=== PATIENT | female | born 2000 | race Caucasian/White ===

== ENCOUNTER 2023-07-10 11:02 | Outpatient (OUT) | payer OTHER, SELFPAY ==
[2023-07-10 11:28] LABS: Basophils Percent Auto 0.8 % (0.2-2.0); Eosinophils Absolute Auto 0.2 10^3/uL (0.0-0.7); Eosinophils Percent Auto 4.2 % (0.9-7.0); Hematocrit 37.9 % (36.0-48.0); Hemoglobin 12.7 g/dL (12.0-16.0); Immature Granulocytes Abs Auto 0.01 10^3/uL (0.00-0.03); Immature Granulocytes Pct Auto 0.3 % (0.0-0.5); Lymphocytes Absolute Auto 1.3 10^3/uL (1.2-3.8); Lymphocytes Percent Auto 35.1 % (20.5-60.0); Mean Corpuscular HGB Conc 33.5 g/dL (29.9-35.2); Mean Corpuscular Hemoglobin 30.3 pg (26.7-34.0); Mean Corpuscular Volume 90.5 fL (81.0-99.0); Mean Platelet Volume 9.5 fL (9.5-13.5); Monocytes Absolute Auto 0.4 10^3/uL (0.3-0.8); Monocytes Percent Auto 10.8 % (1.7-12.0); Neutrophils Absolute Auto 1.9 10^3/uL (1.4-6.5); Neutrophils Percent Auto 48.8 % (43.0-75.0); Platelet Count 227 10^3/uL (150-450); Red Blood Count 4.19 10^6/uL (4.20-5.40); Red Cell Distribution Width 11.9 % (11.0-15.0); White Blood Count 3.8 10^3/uL (4.0-11.0)
[2023-07-10 12:09] LABS: Alanine Aminotransferase 41 U/L (14-59); Albumin Globulin Ratio 1.4; Albumin Level 4.3 g/dL (3.4-5.0); Alkaline Phosphatase 75 U/L (46-116); Amylase 51 U/L (25-115); Aspartate Amino Transferase 24 U/L (15-37); BUN Creatinine Ratio 13.6; Bilirubin Total 0.3 mg/dL (0.2-1.0); Calcium 9.2 mg/dL (8.5-10.1); Carbon Dioxide 28.9 mmol/L (21.0-32.0); Chloride 103 mmol/L (98-107); Estimated GFR (African America >60 (>=60); Estimated GFR (Non-African Ame >60 (>=60); Free T3 2.94 pg/mL (2.18-3.98); Glucose 84 mg/dL (74-106); Potassium 3.9 mmol/L (3.5-5.1); Sodium 136 mmol/L (136-145); Thyroid Stimulating Hormone 2.454 uIU/mL (0.358-3.740); Total Protein 7.3 g/dL (6.4-8.2)
[2023-07-10 14:08] LABS: Mono Screen NEGATIVE (NEGATIVE)
--- OUTSIDE RECORDS SUMMARY | 2023-08-20 13:59 | XMS_ITS | CCD ---
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 Press Operator Name Role Phone GREG GERARDO Admitting Unavailable GREG GERARDO Attending Unavailable GREG GERARDO Consulting Unavailable REQUEST, NONE LISTED Admitting Unavaila ble REQUEST, NONE LISTED Attending Unavaila ble REQUEST, DR SERRANO LISTED Consulting Unavaila ble HOY, DR MAYES Primary Care Unavailable HOMERO SOLOMON Admitting Unavailable NEHA, HOMERO Attending Unavailable NEHA, HOMERO Consulting Unavailable BENJAMÍN, DR MAYES Admitting Unavailable HOY, DR MAYES Attending Unavailable HOY, DR MAYES Consulting Unavailable Problems Active Problems Problem Classification Problem Date Documented Date Episodic/Chronic Fluid and electrolyte disorders (1 source) Dehydration; Translations: [DEHYDRATION] Onset: 08-21-2021 Episodic Nausea and vomiting (1 source) Nausea with vomiting, unspecified; Translations: [NAUSEA WITH VOMITING UNSPECIFIED] Onset: 08-21-2021 Episodic Other screening for suspected conditions (not mental disorders or infectious disease) (1 source) Abnormal electrocardiogram [ECG] [EKG]; Translations: [ABNORMAL ELECTROCARDIOGRAM] Onset: 08-21-2021 Episodic Residual codes; unclassified (1 source) Other specified postprocedural states; Translations: [OTH SPECIFIED POSTPROCEDURAL STATES] Onset: 08-21-2021 Episodic Syncope (4 sources) Syncope and collapse; Translations: [SYNCOPE AND COLLAPSE] Onset: 08-16-2021 Episodic Unclassified (3 sources) CONTACT W/AND (SUSP) EXPOS COVID-19; Translations: [CONTACT W/AND (SUSP) EXPOS COVID-19] Onset: 10-12-2020 Past or Other Problems Problem Classification Problem Date Documented Da te Episodic/Chronic Unclassified (1 source) CONTACT W/AND (SUSP) EXPOS COVID-19; Translations: [CONTACT W/AND (SUSP) EXPOS COVID-19] Onset: 10-08-2020 Results Test Name Value Interpretation Reference Range Facil ity CBC W MANUAL DIFFon 08-16-20 ATYPICAL LYMPH # Normal The [facility] Comment on above: Performed By: #### C MAHESH #### Laboratory [address] [place] [address] Dr. Sirena Gavin ATYPICAL LYMPH % Normal [facility] Comment on above: Performed By: #### C MAHESH #### Laboratory [address] [place] [address] Dr. Sirena Gavin BAND # Normal 0.0-0.3 The [facility] Comment on above: Performed By: #### C MAHESH #### Laboratory [address] [place] [address] Dr. Sirena Gavin BAND % Normal 0-5 The [facility] ostal Comment on above: Performed By: #### C MAHESH #### Laboratory [address] [place] [address] Dr. Sirena Gavin BASOM # 0.00 103/ul Normal 0.00-0.10 The Comment on above: Performed By: #### C MAHESH #### Laboratory [address] [place] [address] Dr. Sirena Gavin BASOM % 0.0 % Critically low 0.2-2.0 [facility] Comment on above: Performed By: #### C MAHESH #### Laboratory [address] [place] [address] Dr. Sirena Gavin BLAST # Normal The [facility] Comment on above: Performed By: #### C MAHESH #### Laboratory [address] [place] [address] Dr. Sirena Gavin BLAST % Normal [facility] Comment on above: Performed By: #### C MAHESH #### Laboratory [address] [place] [address] Dr. Sirena Gavin CORRECTED WBC Normal 4.0-11.[address] [facility] Comment on above: Performed By: #### C MAHESH #### Laboratory [address] [address] [address] Sirena Gavin EOS # 0.00 103/ul Normal 0.00-0.70 The Comment on above: Performed By: #### C MAHESH #### Laboratory [address] [address] [address] Sirena Gavin EOS% 0.0 % Critically low 0.9-7.0 [facility] Comment on above: Performed By: #### C MAHESH #### Laboratory [address] [address] [address] Sirena Gavin HCT 42.6 % Normal 36.0-48.0 The [facility] Comment on above: Performed By: #### C MAHESH #### Laboratory [address] [address] [address] Sirena Gavin HGB 14.3 g/dl Normal 12.0-16.0 [facility] Comment on above: Performed By: #### C MAHESH #### Laboratory [address] [place] [address] Dr. Sirena Gavin LYMPHM # 1.12 103/ul Critically low 1.20-3.80 The [facility] Comment on above: Performed By: #### C MAHESH #### Laboratory [address] [address] [address] Sirena Gavin LYMPHM% 13.0 % Critically low 20.5-60.0 [facility] Comment on above: Performed By: #### C MAHESH #### Laboratory [address] [address] [address] Sirena Gavin MCH 29.2 pg Normal 26.7-34.0 The [facility] Comment on above: Performed By: #### C MAHESH #### Laboratory [address] [address] [address] Sirena Gavin MCHC 33.6 g/dl Normal 29.9-35.2 The [facility] Comment on above: Performed By: #### Haydee ARAGON #### Laboratory [address] [place] [address] Dr. Sirena Gavin MCV 87.1 fL Normal 81.0-99.0 The [facility] Comment on above: Performed By: #### C BCMAN #### Laboratory [address] [place] [address] Dr. Sirena Gavin METAMYELOCYTE # Normal [facility] Comment on above: Performed By: #### C BCRUBY #### Laboratory [address] [place] [address] Dr. Sirena Gavin METAMYELOCYTE % Normal [facility] Comment on above: Performed By: #### C BCRUBY #### Laboratory [address] [place] [address] Dr. Sirena Gavin MONOM# 0.34 103/ul Normal 0.30-0.80 [facility] Comment on above: Performed By: #### C MAHESH #### Laboratory [address] [place] [address] Dr. Sirena Gavin MONOM% 4.0 % Normal 1.7-12.0 The [facility] Comment on above: Performed By: #### C MAHESH #### Laboratory [address] [place] [address] Dr. Sirena Gavin MPV 9.0 fL Critically low 9.5-13.5 [facility] Comment on above: Performed By: #### C MAHESH #### Laboratory [address] [place] [address] Dr. Sirena Gavin MYELOCYTE # Normal The Comment on above: Performed By: #### C BCRUBY #### Laboratory [address] [place] [address] Dr. Sirena Gavin MYELOCYTE % Normal The Comment on above: Performed By: #### C BCMAN #### Laboratory [address] [place] [address] Dr. Sirena Gavin NRBC Normal [facility] Comment on above: Performed By: #### C MAHESH #### Laboratory [address] [place] [address] Dr. Sirena Gavin PLT 295 103/ul Normal 150-450 The [facility] ostal Comment on above: Performed By: #### C MAHESH #### Laboratory [address] [place] [address] Dr. Sirena Gavin RBC 4.89 106/ul Normal 4.20-5.40 [facility] Comment on above: Performed By: #### C MAHESH #### Laboratory [address] [place] [address] Dr. Sirena Gavin RDW 13.1 % Normal 11.0-15.0 [facility] Comment on above: Performed By: #### C MAHESH #### Laboratory [address] [place] [address] Dr. Sirena Gavin SEG # 7.14 103/ul Critically high 1.40-6.50 [facility] Comment on above: Performed By: #### Haydee ARAGON #### Laboratory [address] [place] [address] Dr. Sirena Gavin SEG % 83.0 % Critically high 43.0-75.0 [facility] Comment on above: Performed By: #### C MAHESH #### Laboratory [address] [place] [address] Dr. Sirena Gavin WBC 8.6 103/ul Normal 4.0-11.0 [facility] Comment on above: Performed By: #### Haydee ARAGON #### Laboratory [address] [place] [address] Dr. Sirena Gavin PROF CHEM 8 (BAS METB)on Anion gap [Moles/Vol] 13.8 mmol/L Normal [facility] Comment on above: Performed By: #### B MP #### Laboratory [address] [place] [address] Dr. Sirena Gavin Calcium [Mass/Vol] 9.7 mg/dL Normal 8.4-10.2 [facility] Comment on above: Performed By: #### B MP #### Laboratory [address] [place] [address] Dr. Sirena Gavin Chloride [Moles/Vol] 99 mmol/L Normal 98-107 [facility] Comment on above: Performed By: #### B MP #### Laboratory [address] [address] [address] Sirena Gavin CO2 [Moles/Vol] 27.1 mmol/L Normal 22.0-30.0 [facility] Comment on above: Performed By: #### B MP #### Laboratory [address] [address] [address] Sirena Gavin Creatinine [Mass/Vol] 0.83 mg/dL Normal 0.52-1.04 [facility] Comment on above: Performed By: #### B MP #### Laboratory [address] [address] [address] Sirena Gavin EGFR-AF MACEDONIAN >60 Normal >=60 [facility] Comment on above: Performed By: #### B MP #### Laboratory [address] [address] [address] Sirena Gavin EGFR-NON AF MACEDONIAN >60 Normal >=60 [facility] Comment on above: Performed By: #### B MP #### Laboratory [address] [address] [address] Sirena Gavin Glucose [Mass/Vol] 107 mg/dL Critically high 74-106 [facility] Comment on above: Performed By: #### B MP #### Laboratory [address] [address] [address] Sirena Gavin Potassium [Moles/Vol] 3.9 mmol/L Normal 3.4-5.0 [facility] Comment on above: Performed By: #### B MP #### Laboratory [address] [address] [address] Sirena Gavin Sodium [Moles/Vol] 136 mmol/L Critically low 137-145 [facility] Comment on above: Performed By: #### B MP #### Laboratory [address] [address] [address] Sirena Gavin Urea nitrogen [Mass/Vol] 9.0 mg/dL Normal 6.4-19.3 [facility] Comment on above: Performed By: #### B MP #### Laboratory [address] [place] [address] Dr. Sirena Gavin Urea nitrogen/Creatinine [Mass ratio] 10.8 mg/mg Normal The Comment on above: Performed By: #### B MP #### Laboratory [address] [place] [address] Dr. Sirena Gavin Rapid Covid-19 PCR (CVDRPD)o n 10-08-2020 [facility] LDT Info SEE BELOW Normal The [facility] Comment on above: Result Comment: This test is not yet approved or cleared by the [place] Food and Drug Administration (FDA) . This test was developed by [facility]. The performance characteristics of this test were validated by The Laboratory. The results are not intended to be used as the sole means for clinical diagnosis or patient management decisions. The is authorized under Clinical Laboratory Improvement Amendments (CLIA) to perform high-complexity testing. When diagnostic testing is negative, the possibility of a false negative should be considered in the context of a patients recent exposures and the presence of clinical signs and symptoms consistent with SARS-CoV-2. Performed By: #### C VDRPD #### Laboratory [address] [place] [address] Jeancarlos Angel SARS-CoV-2 (COVID-19) RNA ROS+probe Ql (Unsp spec) Not detected Normal NOT DETECTED [facility] Comment on above: Result Comment: This test is not yet approved or cleared by the [place] Food and Drug Administration (FDA). This test was developed by [facility]. The performance characteristics of this test were validated by The Laboratory. The results are not intended to be used as the sole means for clinical diagnosis or patient management decisions. The is authorized under Clinical Laboratory Improvement Amendments (CLIA) to perform high-complexity testing. Performed By: #### C VDRPD #### Laboratory [address] [place], [place] [id number] Jeancarlos Angel Encounters Encounter Date Encounter Type Care Provider Facility Start: 08-16-2021 End: 08-16-[address] SUGEY BUTTS Facility:[facility] Start: 12-22-2020 End: 12-23-2020 ambulatory GREG GERARDO Facility:[facility] Start: 12-02-2020 End: 12-03-2020 ambulatory NONE LISTED REQUEST Facility:[facility] Start: 10-08-2020 End: 10-09-2020 ambulatory SUGEY BUTTS Facility:[facility] Payers Date Payer Category Payer Unknown [id number] [id number] [id number] 1968 Unknown [id number] 2.16.84 [id number] 1959 Self-pay 1957 Unknown [id number] Unknown [id number] 2.16.84 [id number] Unknown [id number] 2.16.84 [id number] Summary Purpose Family History No Family History Records Found Advance Directives No Advanced Directives Records Found Additional Source Comments INFORMATION SOURCE (unrecogn ized section and content) DATE CREATED AUTHOR 08/21/2021 The [facility] FOR RECORDS PERTAINING TO PATIENTS WHO ARE OR HAVE BEEN ENROLLED IN A CHEMICAL DEPENDENCY/SUBSTANCEABUSE PROGRAM, SOME INFORMATION MAY BE OMITTED. This clinical summary was aggregated from multiple sources. Caution should be exercised in using it in the provision of clinical care. This summary normalizes information from multiple sources, and as a consequence, information in this document may materially change the coding, format and clinical context of patient data. In addition, data may be omitted in some cases. CLINICAL DECISIONS SHOULD BE BASED ON THE PRIMARY CLINICAL RECORDS. [facility] [employer] [facility]. provides no warranty or guarantee of the accuracy or completeness of information in this document.
== END 2023-07-10 11:03 | disposition home or self-care (01) ==
LOC: LAB 11:05
PROVIDERS: PCP Family Medicine; Visit Provider Family Medicine
DX: R10.11 Right upper quadrant pain (principal); D64.9 Anemia, unspecified; R53.83 Other fatigue
CPT/HCPCS: 36415; 80053; 82150; 83540; 83690; 84436; 84443; 84481; 85025; 86308

== ENCOUNTER 2024-09-07 11:29 | Emergency (ER) | payer OTHER, SELFPAY ==
[2024-09-07 11:34] VITALS: BP 122/82; PULSE 110; TEMP 36.8; O2SAT 100; BMI 19.8
--- NOTE | 2024-09-07 11:54 | ED.NAVMDI1 ---
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 Her skin hurts as well and she has had no fever or hematemesis. LMP was August 26. Related Data Previous Rx's ?Medication ?Instructions ?Recorded ondansetron 4 mg disintegrating 4 mg PO Q6H PRN nausea and 09/07/24 tablet vomiting #20 tabs Allergies Allergy/AdvReac Type Severity Reaction Status Date / Time No Known Drug Allergies Allergy Verified 09/07/24 11:34 Review of Systems ROS Narrative A ten point review of systems is negative except as noted above. PFSH PFSH Social History Little interest or pleasure in doing things: not at all Feeling down, depressed, or hopeless: not at all Exam Narrative Exam Narrative: Nurses note and vital signs reviewed and patient is not hypoxic. General: The patient appears uncomfortable. She is tearful. Skin: Warm, dry, no pallor noted. There is no rash noted. Head: Normocephalic, atraumatic Eye: Normal conjunctiva, no drainage Ears, Nose, Mouth, and Throat: oral mucosa is moist. Nares patent. Cardiovascular: Regular Rate and Rhythm Respiratory: Patient is in no distress, no accessory muscle use, lungs are clear to auscultation, no wheezing, rales or rhonchi Back: non-tender GI: Soft. Mild tenderness. Musculoskeletal: The patient has no evidence of calf tenderness, no pitting edema, symmetrical pulses noted bilaterally Neurological: A&O, normal speech Psychiatric: Cooperative Constitutional Vital Signs, click to edit/add: Last Vital Signs Temp 98.2 F 09/07/24 11:34 Pulse 110 H 09/07/24 11:34 Resp 20 09/07/24 11:34 BP 122/82 09/07/24 11:34 Pulse Ox 100 09/07/24 11:34 O2 Del Method Room Air 09/07/24 11:34 Course Vital Signs Vital signs: Vital Signs Temperature 98.2 F 09/07/24 11:34 Pulse Rate 110 H 09/07/24 11:34 Respiratory Rate 20 09/07/24 11:34 Blood Pressure 122/82 09/07/24 11:34 Pulse Oximetry 100 09/07/24 11:34 Oxygen Delivery Method Room Air 09/07/24 11:34 Temperature 98.2 F 09/07/24 11:34 Pulse Rate 110 H 09/07/24 11:34 Respiratory Rate 20 09/07/24 11:34 Blood Pressure 122/82 09/07/24 11:34 Pulse Oximetry 100 09/07/24 11:34 Oxygen Delivery Method Room Air 09/07/24 11:34 MDM - Nausea/Vomiting/Diarrhea MDM Narrative Medical decision making narrative: Blood work is nonspecific. The patient feels much better now and is tolerating p.o. liquids and is able to be discharged home. Treatment diagnosis and follow-up were discussed with the patient and her mother. Differential Diagnosis Differential diagnosis: Likely food poisoning, gastroenteritis and dehydration Lab Data Attestation: I reviewed the patient's lab results. Labs: Lab Results 09/07/24 Range/Units 11:48 WBC 8.3 (4.0-11.0) 10^3/uL RBC 4.51 (4.20-5.40) 10^6/uL Hgb 14.3 (12.0-16.0) g/dL Hct 41.0 (36.0-48.0) % MCV 90.9 (81.0-99.0) fL MCH 31.7 (26.7-34.0) pg MCHC 34.9 (29.9-35.2) g/dL RDW 11.7 (11.0-15.0) % Plt Count 212 (150-450) 10^3/uL MPV 9.4 L (9.5-13.5) fL Seg Neuts % (Manual) 81.0 H (43.0-75.0) Band Neutrophils % 15.0 H (0-5) % Lymphocytes % (Manual) 2.0 L (20.5-60.0) % Monocytes % (Manual) 1.0 L (1.7-12.0) % Eosinophils % (Manual) 1.0 (0.9-7.0) % Basophils % (Manual) 0.0 L (0.2-2.0) % Neutrophils # (Manual) 6.72 H (1.4-6.5) 10^3/uL Band Neutrophils # 1.2 H (0.0-0.3) 10^3/uL Lymphocytes # (Manual) 0.16 L (1.20-3.80) 10^3/uL Monocytes # (Manual) 0.08 L (0.30-0.80) 10^3/uL Eosinophils # (Manual) 0.08 (0.00-0.70) 10^3/uL Basophils # (Manual) 0.00 (0.00-0.10) 10^3/uL Sodium 140 (136-145) mmol/L Potassium 4.3 (3.5-5.1) mmol/L Chloride 105 (98-107) mmol/L Carbon Dioxide 26.2 (21.0-32.0) mmol/L Anion Gap 13.1 BUN 15.0 (7.0-18.0) mg/dL Creatinine 0.92 (0.55-1.02) mg/dL Est GFR ( Amer) >60 (>=60 mL/min/1.73m^2) Est GFR (Non-Af Amer) >60 (>=60 mL/min/1.73m^2) BUN/Creatinine Ratio 16.3 Glucose 132 H (74-106) mg/dL Calcium 9.2 (8.5-10.1) mg/dL Serum HCG, Qual Negative (NEGATIVE) Discharge Plan Discharge Chief Complaint: Nausea/Vomiting/Diarrhea Clinical Impression: Nausea and vomiting Patient Disposition: Home, Self-Care Time of Disposition Decision: 13:11 Condition: Good Mode of Transportation: Private Vehicle Prescriptions / Home Meds: New ondansetron 4 mg tablet,disintegrating 4 mg PO Q6H PRN (Reason: nausea and vomiting) Qty: 20 0RF Print Language: Tajik Instructions: Acute Nausea and Vomiting (ED) Referrals: William Greene MD [Primary Care Provider] - 1 week
[2024-09-07] MEDS: ONDANSETRON PF 4 MG/2 ML VIAL IV ×2 (11:59→13:28)
[2024-09-07] MEDS: 0.9 % SODIUM CHLORIDE 1,000 ML 1000 ML IV (11:59)
[2024-09-07 12:15] LABS: Hemoglobin 14.3 g/dL (12.0-16.0); Mean Corpuscular HGB Conc 34.9 g/dL (29.9-35.2); Mean Corpuscular Hemoglobin 31.7 pg (26.7-34.0); Mean Corpuscular Volume 90.9 fL (81.0-99.0); Mean Platelet Volume 9.4 fL (9.5-13.5); Platelet Count 212 10^3/uL (150-450); Red Blood Count 4.51 10^6/uL (4.20-5.40); Red Cell Distribution Width 11.7 % (11.0-15.0); White Blood Count 8.3 10^3/uL (4.0-11.0)
[2024-09-07 12:31] LABS: HCG Qualitative NEGATIVE (NEGATIVE); Internal Control Within Normal Limits
[2024-09-07 12:32] LABS: Band Neutrophils Absolute 1.2 10^3/uL (0.0-0.3); Eosinophils Absolute Manual 0.08 10^3/uL (0.00-0.70); Lymphocytes Absolute Manual 0.16 10^3/uL (1.20-3.80); Monocytes Absolute Manual 0.08 10^3/uL (0.30-0.80); Segmented Neut Absolute Manual 6.72 10^3/uL (1.4-6.5)
[2024-09-07 12:35] LABS: Anion Gap 13.1; BUN Creatinine Ratio 16.3; Calcium 9.2 mg/dL (8.5-10.1); Carbon Dioxide 26.2 mmol/L (21.0-32.0); Chloride 105 mmol/L (98-107); Estimated GFR (African America >60 (>=60 mL/min/1.73m^2); Estimated GFR (Non-African Ame >60 (>=60 mL/min/1.73m^2); Glucose 132 mg/dL (74-106); Potassium 4.3 mmol/L (3.5-5.1); Sodium 140 mmol/L (136-145)
== END 2024-09-07 13:36 | disposition home or self-care (01) ==
PROVIDERS: Emergency Provider Emergency Medicine; PCP Family Medicine
DX: R11.2 Nausea with vomiting, unspecified (principal)
CPT/HCPCS: 36415; 80048; 84703; 85007; 85027; 96361; 96374; 96376; 99284; J2405

== ENCOUNTER 2025-04-29 17:41 | Outpatient (OUT) | payer OTHER, SELFPAY ==
--- OUTSIDE RECORDS SUMMARY | 2025-02-16 04:16 | XMS_ITS ---
Author Organization The [facility] in [place] Address [address] [place] [address] Care Team Providers Care Mixing Machine Feeder Name Role Phone Gurpreet Greene Primary Care Provider Medications Medication SIG (Take, Route, Frequency, Duration) Notes Start Date End Date Status Pyridium 200 MG 1 tablet after meals Orally Three times a day for 2 days 02/16/2025 Active Ciprofloxacin HCl 500 MG 1 tablet Orally every 12 hrs for 10 days 02/16/2025 Active Encounters Encounter Location Date Provider Diagnosis [facility] [address] [place] [address] 02/16/2025 Gurpreet Greene Plan Of Treatment Medication Medication Name Sig Start Date Stop Date Notes Pyridium 200 MG 1 tablet after meals Orally Three times a day for 2 days 02/16/2025 Ciprofloxacin HCl 500 MG 1 tablet Orally every 12 hrs for 10 days 02/16/2025 Progress Notes * Jenna URIBE LDOB:[birth year] (24 yo F)Acc No.[id number]:02/16/2025 Patient: Jaye Jenna SINGER :2000 A ge:24 Y S ex:Female Address:[address] [place] [address] [address], [place], [address] * Refills Start Pyridium Tablet, 200 MG, Orally, 9, 1 tablet after meals, Three times a day, 2 days Start Ciprofloxacin HCl Tablet, 500 MG, Orally, 20 Tablet, 1 tablet, every 12 hrs, 10 days * true * Date: Generated for Yoni alvarado/Faxing/eTransmitting on: 0 04/29/2025 05:46 PM EDT
--- OUTSIDE RECORDS SUMMARY | 2025-03-10 04:29 | XMS_ITS ---
Author Organization The [facility] in [place] Address [address] [place] [address] Care Team Providers Care Transit Manager Name Role Phone Gurpreet Greene Primary Care Provider Medications Medication SIG (Take, Route, Frequency, Duration) Notes Start Date End Date Status buPROPion HCl ER (XL) 300 MG TAKE 1 TABLET BY MOUTH EVERY DAY IN THE MORNING for 90 days Active Encounters Encounter Location Date Provider Diagnosis [address] [place] [address] 03/10/2025 Gurpreet Greene Plan Of Treatment Medication Medication Name Sig Start Date Stop Date Notes buPROPion HCl ER (XL) 300 MG TAKE 1 TABL ET BY MOUTH EVERY DAY IN THE MORNING for 90 days Progress Notes * Jenna URIBE LDOB:[birth year] (24 yo F)Acc No.[id number]:03/10/2025 Patient: Jaye Jenna SINGER :2000 A ge:24 Y S ex:Female Address:[address] [place] [address] [address], [place], [address] * Refills Refill buPROPion HCl ER (XL) Tablet Extended Release 24 Hour, 300 MG, 90 Tablet, TAKE 1 TABLET BY MOUTH EVERY DAY IN THE MORNING, 90 days, Refills=1 * true * Date: Generated for Yoni ng/Faxing/eTransmitting on: 0 04/29/2025 05:46 PM EDT
--- OUTSIDE RECORDS SUMMARY | 2025-04-28 13:43 | XMS_ITS ---
Author Organization The [facility] in [place] Address [address] [place] [address] Care Team Providers Care Inoculator Name Role Phone Jc Gurpreet Primary Care Provider Reason For Referral Diagnosis 1 Recurrent sinusitis (J32.9) Referral Organization [facility] Referring Provider First Name Gurpreet Referring Provider Last Name Jc Referring Provider Speciality Family [facility] icine Referred Provider Nathalie Saunders Referred Provider Specialty Otolaryngolo gy Referral Priority Routine REASON FOR VISIT ENT- XR- LMTCB Problems Problem Type SNOMED Code ICD Code Onset Dates Problem Status W/U Status Risk Notes Problem Recurrent sinusitis (037930140) Recurrent sinusitis (J32.9) Active confirmed Encounters Encounter Location Date Provider Diagnosis [facility] [address] [place] [address] 04/28/2025 Gurpreet Jc Recurrent sinusitis J32.9 Assessments Encounter Date Diagnosis (ICD Code) Assessment Notes Treatment Notes Treatment Clinical Notes Section Notes 04/28/2025 Recurrent sinusitis (ICD-10 - J32.9) Plan Of Treatment Pending Test Test Name Order Date XR sinus min 3V 04/28/2025 Referrals Referral Date Details 04/29/2025 04/29/2025Nathalie Progress Notes * Jenna URIBE LDOB:[birth year] (24 yo F)Acc No.[id number]:04/28/2025 UNLOCKED PROGRESS NOTE Patient: Bridger STOKESfco Nickerson :2000 A ge:24 Y S ex:Female Address:[address] [place] [address] [address], [place], [address] Subjective: * Chief Complaints: * E NT- XR- LMTCB * Medical History: * Surgical History: * Hospitalization/Major Diagno stic Procedure: * Medications: Objective: * Vitals: * Physical Examination: Assessment: * Assessment: 1. R ecurrent sinusitis - J32.9 (Primary) Plan: * Treatment: * Procedure Codes: * * Date: Consultation Request Notes Referral Date Referring Provider Referred Provider Not es 04/29/2025 Gurpreet Greene Hilary
--- NOTE | 2025-04-29 | XR_ITS ---
[address] [address] Patient Name: PASCUAL URIBE MRN: [id number] date: 2000 Sex: F Assigned Patient Location: [facility] Current Patient Location: Accession/Order Number: [id number] Exam Date: 04/29/2025 17:48 Report Date: 04/30/2025 00:48 At the request of: SUGEY BUTTS MD Procedure: XR sinus min 3V XR sinus min 3V 04/29/2025 5:56 PM SIGNS AND SYMPTOMS: ^recurrent sinusitis J32.9 PROTOCOL: Frontal and lateral radiographs of the paranasal sinuses COMPARISON: None FINDINGS: The paranasal sinuses are well aerated. Normal ribs are within normal limits. The facial bones are grossly intact. XR/XR sinus min 3V IMPRESSION: The paranasal sinuses are well aerated. Impression dictated by: Doyle Parson M.D. 04/30/2025 12:48 AM Dictation Location: [employer] Electronically authenticated by: [id number] Date: 04/30/2025 00:48
--- OUTSIDE RECORDS SUMMARY | 2025-04-29 17:46 | XMS_ITS | Encounter Summary ---
Author Organization [facility] tem Address [id number] [address] [place] [address] Care Team Providers Care Packing Line Worker Name Role Phone William Greene MD Primary Care Provider [phone] Encounter Details Date Type Department Care Team (Late st Contact Info) Description 02/28/2016 Orders Only [facility] [phone] Franky Gilliam MD [address] [place], [place] [id number] Social History Tobacco Use Types Packs/Day Years Used Date Smoking Tobacco: Never Assessed Comments Unknown Sex and Gender Information Value Date Recorded Sex Assigned at Not on file Legal Sex Female 12:10 PM EDT Gender Identity Not on file Sexual Orientation Not on file documented as of this encounter Plan of Treatment Not on file documented as of this encounter Procedures Procedure Name Priority Date/Time Associated Diagnosis Comments IR INTERVENTIONAL RAD PROCEDURE Routine 02/28/2016 2:04 PM EDT documented in this encounter Results * IR interventional rad procedure (02/28/2016 2:04 PM EDT) Anatomical Region Laterality Modality X-Ray Angiograph y 02/28/2016 2:02 PM EDT Narrative 02/29/2016 5:57 PM EDT PATIENT NAME: SONAM URIBE DATE OF : 2000 ([facility] ) Reported (final) ADM. PHYS REQ. PHYS FRANKY GILLIAM MD REQ. SERV O ORDER ID: [id number] ACC. TYPE ADMIT DATE DATE OF SERVICE 02/28/2016 Reason: Exams: XA INTERVENTIONAL RAD PROCEDURE Examination: XA INTERVENTIONAL RAD PROCEDURE Clinical History: lp dx papilledema Clinical history: 15-year-old girl with papilledema. Obesity. Pseudotumor cerebri is questioned. Procedure: Fluoroscopically guided lumbar puncture Procedure: At the request of the clinical service, this procedure was performed under fluoroscopic guidance with the patient receiving a propofol drip administered by the anesthesia service. The nature, risks benefits and alternatives to this procedure were discussed with the patient and her parents. Risks discussed included, but were not limited to: bleeding; infection; injury to adjacent structures (nerve, vascular) requiring further treatment, possibly surgical; headache, possibly requiring blood patch placement; technical failure. After their questions were answered the patient's mother consented to proceed. The patient was positioned prone on the fluoroscopy table. Her pelvis was shielded with a wraparound lead apron. Tight collimation carried out in an effort to minimize radiation exposure. A critical pause was performed to verify patient identification and appropriate procedure. The back was prepped and draped in sterile fashion. Local anesthesia was achieved with Lidocaine 1%. Under fluoroscopic guidance a 22-gauge spinal needle was advanced into the thecal sac at the L2-L3 level . Satisfactory needle position confirmed with orthogonal spot radiographs and the return of clear, colorless cerebrospinal fluid. An opening pressure of 19 cm water was encountered pressure taken following removal of fluid was seen. A total of approximately 9 mL of fluid was removed and submitted to the laboratory for studies requested by the clinical service. The procedure was concluded. There were no immediate complications. The patient was observed in the radiology recovery room then discharged to the postanesthesia care unit in stable condition. Total fluoroscopy time: 36 seconds. Total dose: 7 m Vasquez. + + IMPRESSION: 1. Fluoroscopically guided lumbar puncture, as detailed above. TRANSCRIBED BY: SPEECH RECOGNITION 02/29/2016 at 17:53 DICTATED BY: GWEN BHATT MD 02/29/2016 at 17:53 ELECTRONICALLY SIGNED BY: GWEN BHATT MD 02/29/2016 at 17:57 Result ID: [id number]/ + + Procedure Note Gwen Bhatt MD - 03/14/2016 PATIENT NAME: SONAM URIBE DATE OF : 2000 ([facility] ) Reported (final) ADM. PHYS REQ. PHYS FRANKY GILLIAM MD REQ. SERV O ORDER ID: [id number] ACC. TYPE ADMIT DATE DATE OF SERVICE 02/28/2016 Reason: Exams: XA INTERVENTIONAL RAD PROCEDURE Examination: XA INTERVENTIONAL RAD PROCEDURE Clinical History: lp dx papilledema Clinical history: 15-year-old girl with papilledema. Obesity. Pseudotumor cerebri is questioned. Procedure: Fluoroscopically guided lumbar puncture Procedure: At the request of the clinical service, this procedure was performed under fluoroscopic guidance with the patient receiving a propofol drip administered by the anesthesia service. The nature, risks benefits and alternatives to this procedure were discussed with the patient and her parents. Risks discussed included, but were not limited to: bleeding; infection; injury to adjacent structures (nerve, vascular) requiring further treatment, possibly surgical; headache, possibly requiring blood patch placement; technical failure. After their questions were answered the patient's mother consented to proceed. The patient was positioned prone on the fluoroscopy table. Her pelvis was shielded with a wraparound lead apron. Tight collimation carried out in an effort to minimize radiation exposure. A critical pause was performed to verify patient identification and appropriate procedure. The back was prepped and draped in sterile fashion. Local anesthesia was achieved with Lidocaine 1%. Under fluoroscopic guidance a 22-gauge spinal needle was advanced into the thecal sac at the L2-L3 level . Satisfactory needle position confirmed with orthogonal spot radiographs and the return of clear, colorless cerebrospinal fluid. An opening pressure of 19 cm water was encountered pressure taken following removal of fluid was seen. A total of approximately 9 mL of fluid was removed and submitted to the laboratory for studies requested by the clinical service. The procedure was concluded. There were no immediate complications. The patient was observed in the radiology recovery room then discharged to the postanesthesia care unit in stable condition. Total fluoroscopy time: 36 seconds. Total dose: 7 m Vasquez. + + IMPRESSION: 1. Fluoroscopically guided lumbar puncture, as detailed above. TRANSCRIBED BY: SPEECH RECOGNITION 02/29/2016 at 17:53 DICTATED BY: GWEN BHATT MD 02/29/2016 at 17:53 ELECTRONICALLY SIGNED BY: GWEN BHATT MD 02/29/2016 at17:57 Result ID: [id number]/ + + Franky Gilliam MD IMG IR ORDERABLES Final Resu lt documented in this encounter Visit Diagnoses Not on filedocumented in this encounter Care Teams Packing Line Worker Relationship Specialty Start Date End Date William Greene MD PCP - General Family Medicine 08/07/21 documented as of this encounter
--- OUTSIDE RECORDS SUMMARY | 2025-04-29 17:46 | XMS_ITS | Patient Health Record ---
Author Organization [facility] [place] Address [address] [place] [address] Care Team Providers Care Community Relations Manager Name Role Phone Gurpreet Greene Primary Care Provider Sisi Restrepo Unavailable [phone] Allergies No Known Allergies Results Component Value Reference Range Notes CBC AUTO DIFF Reviewed date:09/07/2024 01:27:49 PM Interpretation: Performing Lab: Notes/Report: [facility] , White Blood Count 8.3 4.0-11.0 10 3/uL Red Blood Count 4.51 4.20-5.40 10 6/uL Hemoglobin 14.3 12.0-16.0 g/dL Hematocrit 41.0 36.0-48.0 % Mean Corpuscular Volume 90.9 81.0-99.0 fL Mean Corpuscular Hemoglobin 31.7 26.7-34.0 pg Mean Corpuscular HGB Conc 34.9 29.9-35.2 g/dL Red Cell Distribution Width 11.7 11.0-15.0 % Platelet Count 212 150-450 10 3/uL Mean Platelet Volume 9.4 9.5-13.5 fL Performing Lab: see note ML - [facility] LB PROF CHEM 8 (BAS METB) Reviewed date:09/07/2024 01:27:49 PM Interpretation: Performing Lab: Notes/Report: [facility] , Sodium 140 136-145 mmol/L Potassium 4.3 3.5-5.1 mmol/L Chloride 105 98-107 mmol/L Carbon Dioxide 26.2 21.0-32.0 mmol/L Anion Gap 13.1 Glucose 132 74-106 mg/dL Blood Urea Nitrogen 15.0 7.0-18.0 mg/dL Creatinine 0.92 0.55-1.02 mg/dL Estimated GFR ( Whitney >60 >=60 mL/mi n/1.73m 2 Estimated GFR (Non- Dahlia >60 >=60 mL/mi n/1.73m 2 BUN Creatinine Ratio 16.3 Calcium 9.2 8.5-10.1 mg/dL Performing Lab: see note ML - [facility] LB Manual Differential Reviewed date:09/07/2024 01:27:49 PM Interpretation: Performing Lab: Notes/Report: [facility] , Segmented Neutrophils % Manual 81.0 43.0-75.0 Band Neutrophils % 15.0 0-5 % Lymphocytes Percent Manual 2.0 20.5-60.0 % Monocytes Percent Manual 1.0 1.7-12.0 % Eosinophils Percent Manual 1.0 0.9-7.0 % Basophils Percent Manual 0.0 0.2-2.0 % Segmented Neut Absolute Manual 6.72 1.4-6.5 10 3/uL Band Neutrophils Absolute 1.2 0.0-0.3 10 3/uL Lymphocytes Absolute Manual 0.16 1.20-3.80 10 3/uL Monocytes Absolute Manual 0.08 0.30-0.80 10 3/ uL Eosinophils Absolute Manual 0.08 0.00-0.70 10 3/uL Basophils Abs Manual 0.00 0.00-0.10 10 3/uL Performing Lab: see note ML - [facility] LB HCG Qualitative* Reviewed date:09/07/2024 01:27:49 PM Interpretation: Performing Lab: Notes/Report: [facility] , HCG Qualitative NEGATIVE NEGATIVE Performing Lab: see note ML - [facility] LB Reason For Referral Diagnosis 1 Recurrent sinusitis (J32.9) Referral Organization [facility] Referring Provider First Name Gurpreet Referring Provider Last Name Jc Referring Provider Speciality [facility] santino Referred Provider Nathalie Saunders Referred Provider Specialty Otolaryngolo gy Referral Priority Routine Medications Medication SIG (Take, Route, Frequency, Duration) Notes Start Date End Date Status Pyridium 200 MG 1 tablet after meals Orally Three times a day for 2 days 02/16/2025 Active buPROPion HCl ER (XL) 300 MG TAKE 1 TABL ET BY MOUTH EVERY DAY IN THE MORNING for 90 days Active Ciprofloxacin HCl 500 MG 1 tablet Orally every 12 hrs for 10 days 02/16/2025 Active Protonix 40 MG 1 tablet Orally Ever y Evening for 30 day(s) 07/10/2023 Active Ondansetron 4 MG 1 tablet on the tong ue and allow to dissolve Orally Q 6 hours PRN for 7 days 07/10/2023 Active Levsin/SL 0.125 MG 1 tablet under the tongue and allow to dissolve as needed Sublingual every 6 hrs 07/10/2023 Active Social History Alcohol Screen (Audit-C) Question Answer Notes Did you have a drink containing alcohol in the p ast year? No Points 0 Interpretation Negative AUDIT-C (Standard) Question Answer Notes Did you have a drink contain ing alcohol in the past year? Yes How often did you have six o r more drinks on one occasion in the past year? Never (0 point) How many drinks did you have on a typical day when you were drinking in the past year? 1 or 2 drinks (0 point) How often did you have a dri nk containing alcohol in the past year? Monthly or less (1 point) Points 1 Interpretation Negative Problems Problem Type SNOMED Code ICD Code Onset Dates Problem Status W/U Status Risk Notes Problem Right upper quadrant pain (R10.11) Active confirmed Problem Well adult (888861446) Well adult (Z00.00) Active confirmed Problem Seasonal allergy (063453933) Seasonal allergies (J30.2) Active confirmed Problem Recurrent sinusitis (604446073) Recurrent sinusitis (J32.9) Active confirmed Vital Signs Blood pressure diastolic 62 mm Hg 01/26/2025 Height 70 in 01/26/2025 Blood pressure systolic 102 mm Hg 01/26/2025 Weight 143 lbs 01/26/2025 BMI 20.52 kg/m2 01/26/2025 Encounters Encounter Location Date Provider Diagnosis [facility] [address] [place] [address] 07/07/2024 Gurpreet Greene Well adult Z00.00 [facility] [address] [place] [address] 01/26/2025 Sisi Restrepo Seasonal allergies J30.2 [facility] [address] [place] [address] 06/18/2024 Gurpreet [facility] [address] [facility] [address] 09/12/2024 Gurpreet Greene Well adult Z00.00 [facility] [address] [facility] [place] [address] 09/14/2024 Gurpreet Greene [facility] [address] [place] [address] 12/07/2024 Gurpreet [facility] [address] [facility] [address] 02/16/2025 Gurpreet [facility] [address] [facility] [address] 03/10/2025 Gurpreet alicia [facility] [address] [facility] [address] 04/28/2025 Gurpreet Greene Recurrent sinusitis J32.9 Assessments Encounter Date Diagnosis (ICD Code) Assessment Notes Treatment Notes Treatment Clinical Notes Section Notes 07/07/2024 Well adult (ICD-10 - Z00.00) 01/26/2025 Seasonal allergies (ICD-10 - J30.2) Kenalog 80 discussed OTC meds rx eye drops if needed 09/12/2024 Well adult (ICD-10 - Z00.00) 04/28/2025 Recurrent sinusitis (ICD-10 - J32.9) Plan Of Treatment Pending Test Test Name Order Date LUMBAR PUNCTURE 02/16/2016 CMP (COMPLETE METABOLIC PANEL) 3 IRON, TOTAL 07/10/2023 CBC WITH DIFF 07/10/2023 H PYLORI ANTIBODY IGG 07/10/2023 THYROID PANEL (T4/TSH/FREE T3) 3 XR sinus min 3V 04/28/2025 Insurance Providers Payer Name Payer Address Payer Phone Subscriber Number Group Number Insured Name Patient Relationship to Insured Coverage Start Date Coverage End Date MMO [address] [place], [place] [id number] ANNIE DESAI Natural Child - Insured does not have Financial Responsibility (includes legally adopted child) 5 Medications Administered Medication Instructions Date of Administration Dosage Notes Triamcinolone 40 mg/ml 01/26/2025 80 mg Medical (General) History Medical History History ICD Code COVID-19 U07.1 Deviated septum J34.2 Epistaxis R04.0 Insomnia G47.00 Surgical History Surgery Date(Month/Year) TONSILLECTOMY,UNDER 12YRS 2013 Nasal Surgery 2020 Spinal Tap 2012
--- OUTSIDE RECORDS SUMMARY | 2025-04-29 17:46 | XMS_ITS | Clinical Summary ---
Author Organization [facility] Address [address] [place] [address] Care Team Providers Care Perioperative Tech Name Role Phone William Greene MD Primary Care Provider [phone] Allergies No known active allergies Medications acetaminophen (Tylenol) 500 MG tablet Take 500 mg by mouth in the morning and 500 mg before bedtime. Active buPROPion XL (Wellbutrin XL) 150 MG 24 hr tablet Take 150 mg by mouth Daily Active fluticasone (Flonase) 50 MCG/ACT nasal sprayIndications :Nasal obstruction Administer 2 sprays into each nostril Daily Shake gently. Before first use, prime pump. After use, clean tip and replace cap. 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 S/P nasal septoplasty 08/21/2021 Nasal obstruction 02/09/2021 Encounters Date Type Department Care Team Description 03/02/2025 1:45 PM EDT Procedure Visit [facility] [address] [place] [address] Brett Lombardo MD Encounter for IUD insertion 03/02/2025 Travel 02/24/2025 Telephone [facility] [address] [place] [address] Brett Lombardo MD 02/23/2025 2:30 PM EDT Office Visit [facility] [address] [place] [address] Brett Lombardo MD Well woman exam with routine gynecological exam; Cervical cancer screening; Screening for HPV (human papillomavirus); Breakthrough bleeding; Postcoital bleeding; Encounter for IUD insertion; Screen for STD (sexually transmitted disease) 02/23/2025 Bamboo flowsheet [facility] [address] [place] [address] Brett Lombardo MD 02/23/2025 Travel 02/15/2025 Telephone [facility] [place] [facility] [address] [place] [phone] Marilin Ramirez RN from Last 3 Months Family History Medical History Relation Name Comments No Known Problems Brother HTN Mother No Known Problems Sister Relation Name Status Comments Brother Alive Father Alive Mother Alive Sister Alive Social History Tobacco Use Types Packs/Day Years Used Date Smoking Tobacco: Never Smokeless Tobacco: Never Tobacco Cessation:Counseling Given: Not Answered Alcohol Use Standard Drinks/Week Comments Yes 1 (1 standard drink = 0.6 oz pur e alcohol) Comments No Sex and Gender Information Value Date Recorded Sex Assigned at Not on file Legal Sex Female 2:59 PM EDT Gender Identity Not on file Sexual Orientation Not on file Last Filed Vital Signs Vital Sign Reading Time Taken Comments Blood Pressure 124/80 03/02/2025 3:50 PM EDT Pulse - - Temperature - - Respiratory Rate - - Oxygen Saturation - - Inhaled Oxygen Concentration - - Weight 64 kg (141 lb) 02/23/2025 3:00 PM EDT Height 172.7 cm (5' 8 ) 04/01/2024 10:33 AM EDT Body Mass Index 21.44 04/01/2024 10:33 AM EDT Plan of Treatment Health Maintenance Due Date Last Done Comments Influenza Vaccine (#1) 2025 Procedures Procedure Name Priority Date/Time Associated Diagnosis Comments POCT , URINE Routine 03/02/2025 3:50 PM EDT Encounter for IUD insertion IUD INSERTION Routine 03/02/2025 1:45 PM EDT Encounter for IUD insertion CHLAMYDIA/N. GONORRHOEAE RNA, TMA, UROGENITAL Routine 02/23/2025 12:00 AM EDT IGP, APT HPV,RFX 16/18,45 Routine 02/23/2025 12:00 AM EDT Cervical cancer screening Screening for HPV (human papillomavirus) from Last 3 Months Results * POCT , urine manually resulted (03/02/2025 3:50 PM EDT) Preg Test, Ur Negative Negative Urine 03/02/2025 3:50 PM EDT Brett Lombardo MD POINT OF CARE TEST ENTER/EDIT ORDERABLES Final Result * IUD INSERTION (03/02/2025 1:45 PM EDT) Narrative Brett Lombardo MD - 03/02/2025 1:45 PM EDT Brett Lombardo MD 03/03/2025 9:22 AM IUD Insertion Performed by: Brett Lombardo MD Authorized by: Brett Lombardo MD Procedure: IUD insertion Consent obtained by patient, parent, or legal power of freelance court reporter - including discussion of procedure risks and benefits, patient questions answered, and patient education provided: yes risk: reasonably certain the patient is not Date/Time of Insertion: 03/02/2025 1:30 PM Speculum placed in vagina: yes Cervix cleaned and prepped: yes Tenaculum/Allis/Ring Forceps applied to cervix: yes Anesthesia used: no Uterus sound depth (cm): 7 Cervix manually dilated: no IUD inserted without complications: yes OSM: Levonorgestrel 20.1 MCG/DAY Patient tolerated procedure well: yes Intended removal date: 8 years Brett Lombardo MD IN CLINIC/BEDSIDE ORDERABLES F inal Result * IGP, APT HPV,RFX 16/18,45 (02/23/2025 12:00 AM EDT) Diagnosis: Comment [facility] Comment: NEGATIVE FOR INTRAEPITHELIAL LESION OR MALIGNANCY. FUNGAL ORGANISMS MORPHOLOGICALLY CONSISTENT WITH TYRONE SPECIES ARE PRESENT. Specimen Adequacy: Comment [facility] Comment: Satisfactory for evaluation. Endocervical and/or squamous metaplastic cells (endocervical component) are present. Clinician Provided ICD10: Comment [facility] Comment: Z12.4 Z11.51 Performed By: Comment [facility] Comment:Isabel Pratt Cytoji ewing (ASCP) Cyto Comments . [facility] Note: Comment [facility] Comment: The Pap smear is a screening test designed to aid in the detection of premalignant and malignant conditions of the uterine cervix. It is not a diagnostic procedure and should not be used as the sole means of detecting cervical cancer. Both false-positive and false-negative reports do occur. Test Methodology: Comment [facility] Comment: This liquid based ThinPrep(R) pap test was screened with the use of an image guided system. HPV Aptima Negative Negative [facility] Comment: This nucleic acid amplification test detects fourteen high-risk HPV types (16,18,31,33,35,39,45,51,52,56,58,59,66,68) without differentiation. Vaginal Fluid 02/23/2025 02/24/2025 Narrative [facility] - 02/25/2025 1:07 PM EDT Performed at: - [address] [id number] Nursing Technician: Sadia Avila MD, Phone: [phone] Performed at: 02 - [address] [id number] Nursing Technician: Sadia Avila MD, Phone: [phone] Specimen Comment: No. of containers..01 ThinPrep Vial us Brett Lombardo MD LAB BLOOD ORDERABLES Final Res ult [facility] * C. trachomatis / N. gonorrhoeae, DNA probe (02/23/2025 12:00 AM EDT) C Trach ROS Negative Negative [facility] N Gonorrhoeae ROS Negative Negative [facility] 02/23/2025 02/24/2025 Narrative [facility] - 02/25/2025 1:07 PM EDT Performed at: 02 - [facility] [address] [place] [id number] Nursing Technician: Sadia Avila MD, Phone: [phone] Specimen Comment: No. of containers..01 ThinPrep Vial us Brett Lombardo MD LAB PATHOLOGY ORDERABLES Final Result [facility] from Last 3 Months Insurance [employer] Care Teams Perioperative Tech Relationship Specialty Start Date End Date William Greene MD [address] [place] [address] PCP - General Family Medicine 02/25/25
== END 2025-04-29 17:42 | disposition home or self-care (01) ==
PROVIDERS: PCP Family Medicine; Visit Provider Family Medicine
DX: J32.9 Chronic sinusitis, unspecified (principal)
CPT/HCPCS: 70220

== ENCOUNTER 2025-08-05 12:05 | Outpatient (OUT) | payer OTHER, SELFPAY ==
--- NOTE | 2025-08-05 12:11 | XR_ITS ---
The [place] [id number] Patient Name: PASCUAL URIBE MRN: [id number] date: 2000 Sex: F Assigned Patient Location: [facility] Current Patient Location: [facility] Accession/Order Number: [id number] Exam Date: 08/05/2025 12:34 Report Date: 08/05/2025 16:24 At the request of: SUGEY BUTTS MD Procedure: XR shoulder RT min 2V XR shoulder RT min 2V 08/05/2025 12:38 PM SIGNS AND SYMPTOMS: ^shoulder pain, right PROTOCOL: Frontal, Grashey, and scapular Y views of the right shoulder COMPARISON: None FINDINGS: No fracture or dislocation. No significant degenerative change. The visualized right hemithorax is intact. XR/XR shoulder RT min 2V IMPRESSION: No acute bony injury or significant degenerative change. Impression dictated by: Doyle Parson M.D. 08/05/2025 4:24 PM Dictation Location: [place] [address] Electronically authenticated by: [id number] Y Date: 08/05/2025 16:24
--- OUTSIDE RECORDS SUMMARY | 2025-08-05 12:11 | XMS_ITS | Clinical Summary ---
Author Organization [facility] tem Address [id number] [address] [place] [address] Care Team Providers Care Chip Loft Worker Name Role Phone William Greene MD Primary Care Provider [phone] Allergies No known active allergies Medications MedicationSigDispense QuantityRefillsLast FilledStart DateEnd DateStatus buPROPion XL (WELLBUTRIN XL) 150 mg 24 hr tablet 01/23/2021ctive sod eahin-fvtnub-blqnja bottle (NEILMED SINUS RINSE COMPLETE) packet with rinse device nasal solution Administer 1 packet into each nostril 2 (two) times a day. 60 packet 08/10/2021ctive Additional Information Patient not taking.Reported on 08/14/2021 mupirocin (BACTROBAN) 2 % ointment Applied intranasally bilaterally 2 times daily 15 g 08/10/2021ctive Additional Information Patient not taking.Reported on 08/14/2021 predniSONE (DELTASONE) 10 mg tablet Daily dose: 5 tabs for 2 days, then 4 tabs for 2 days, then 3 tabs for 2 days, then 2 tabs for 2 days, then 1 tab for 2 days 30 tablet 08/10/2021ctive Additional Information Patient not taking.Reported on 08/14/2021 Active Problems ProblemNoted DateDiagnosed DateS/P tonsillectomy and rwttpiwhovsnq56/03/2022/P nasal hhkypgmyipr99/20/2021Nasal yqqsyfxqoba71/10/2021 Social History Tobacco UseTypesPacks/DayYears UsedDateSmoking Tobacco: NeverSmokeless Tobacco: NeverAlcohol UseStandard Drinks/WeekCommentsNever0 (1 standard drink = 0.6 oz pure alcohol)PHQ-2AnswerDate RecordedTotal Cuwip671/08/2021ChildcareAnswerDate RzqejdzdWsytcljezIlswtfn63/12/2019EmploymentAnswerDate RecordedEmploymentUnknown 02/11/2019Purpose - LifeAnswerDate RecordedPurpose and direction in lifeUnknown 1CommentsNoSex and Gender InformationValueDate RecordedSex Assigned at BirthNot on fileLegal TgnJbmjlw42/06/2015 12:10 PM EDTGender IdentityNot on fileSexual OrientationNot on file Last Filed Vital Signs Vital SignReadingTime TakenCommentsBlood Depixbdk830/0474208/14/2021 1:40 PM EST Lllxq78434/13/2021 1:40 PM XAJLcinvexndtn38.8 ??C (98.2 ??F)08/14/2021 10:45 AM ESTRespiratory Tdrp236310/15/2020 1:40 PM ESTOxygen Vcpldmvazg434%08/14/2021 1:40 PM ESTInhaled Oxygen Concentration--Bhbsax84.9 kg (143 lb)09/04/2021 10:11 AM SHASoexdv640.7 cm (5' 8 )09/04/2021 10:11 AM ESTBody Mass Index21.7409/04/2021 10:11 AM EST Plan of Treatment Health MaintenanceDue DateLast DoneCommentsDepression Tsltoxlkw40/15/2015Tobacco Edcxtnyft64/15/2015dult BMI Sfryccnbn48/15/2021Pap Smear2023OVID-19 Vaccine ( season)501/10/2021, 12/02/2020Influenza Vaccine 05/03/2025DTaP,Tdap and Td Vaccines (7 - Td or Tdap)8004/24/2018, 11/18/2007, 06/19/2004, Additional history exists Medical Devices Not on file Insurance * Guarantor: Mona RANDHAWA TypeRelation to PatientDate of PhoneBilling AddressPersonal/FamilyMother [address] [place] [phone] Care Teams Team MemberRelationshipSpecialtyStart DateEnd William Greene MD PCP - GeneralFamily Uohgctec69/6/21
--- OUTSIDE RECORDS SUMMARY | 2025-08-05 12:11 | XMS_ITS | Clinical Summary ---
Author Organization [facility] Address [address] [place] [address] Care Team Providers Care Asp Net Software Developer Name Role Phone William Greene MD Primary Care Provider [phone] Social History Tobacco UseTypesPacks/DayYears UsedDateSmoking Tobacco: Never Assessed CommentsUnknownSex and Gender InformationValueDate RecordedSex Assigned at Not on fileLegal TtpObkiop18/22/2016 10:43 AM EDTGender IdentityNot on file Sexual OrientationNot on file Plan of Treatment Not on file Insurance Care Teams Team MemberRelationshipSpecialtyStart DateEnd Date William Greene MD [facility]02/22/16
--- OUTSIDE RECORDS SUMMARY | 2025-08-05 12:11 | XMS_ITS | Clinical Summary ---
Author Organization [facility] Healthcare Address [address] [place] [address] Care Team Providers Care Tow Car Driver Name Role Phone William Greene MD Primary Care Provider [phone] Allergies No known active allergies Medications MedicationSigDispense QuantityRefillsLast FilledStart DateEnd DateStatus acetaminophen (Tylenol) 500 MG tablet Take 500 mg by mouth in the morning and 500 mg before bedtime.Active buPROPion XL (Wellbutrin XL) 150 MG 24 hr tablet Take 150 mg by mouth DailyActive pantoprazole (ProtoNix) 40 MG EC tablet Take 40 mg by mouth in the morning. Take before meals. Do not crush, chew, or split.Active hyoscyamine (Levsin) 0.[address] 125 mcg under the tongue every 4 (four) hours if needed for bladder spasms Active fluticasone (Flonase) 50 MCG/ACT nasal spray Indications:Nasal valve collapseAdminister 2 sprays into each nostril Daily Shake gently. Before first use, prime pump. After use, clean tip and replace cap. 48 g 509/ctive Levonorgestrel (LILETTA, 52 MG, IU) by Intrauterine routeActive SUMAtriptan (Imitrex) 50 MG tablet Take 50 mg by mouth 1 (one) time if needed for migraine May repeat dose once in 2 hours if no relief. Do not exceed 2 doses in 24 hours.Active rizatriptan (Maxalt) 10 MG tablet Take 10 mg by mouth 1 (one) time if needed for migraine May repeat in 2 hours if unresolved. Do notexceed 30 mg in 24 hours.Active Active Problems ProblemNoted DateDiagnosed DateNasal valve ewuligss84/31/2024S/P nasal ehkyynuorav40/20/2021Nasal oyhqoqoebcl73/10/2021 Encounters DateTypeDepartmentCare DmijUfpkhuvmeec19/29/2025Telephone [facility] [address] [place] [address] Rody Snyder MA 06/28/2025 8:30 AM EDTAncillary Procedure [facility] [place] [facility] [address] [place] [address] Intrauterine contraceptive device threads lost, initial jlojgcfmq48/27/2025 Puesvz4206/15/2025 2:30 PM EDTOffice Visit [facility] [place] [facility] [address] [place] [address] Brett Lombardo MD Intrauterine contraceptive device threads lost, initial encounter (Primary Dx) 06/15/2025amboo flowsheet [facility] [place] [facility] [address] [place] [address] Brett Lombardo MD 06/15/20253777Emtkwt00/09/2025 8:10 AM EDTOffice Visit [facility] [address] [facility] [address] [place] [address] Nathalie Saunders MD Nasal valve collapse (Primary Dx)05/11/2025Orders Only [facility] [address] [place] [address] William Greene MD 05/11/2025amboo flowsheet [facility] [address] [place] [address] Nathalie Saunders MD 05/11/2025Travelfrom Last 3 Months Family History Medical HistoryRelationNameCommentsNo Known ProblemsBrotherHTNMotherNo Known ProblemsSisterRelationNameStatusCommentsBrotherAliveFatherAliveMotherAliveSister Alive Social History Tobacco UseTypesPacks/DayYears UsedDateSmoking Tobacco: NeverSmokeless Tobacco: Never Tobacco Cessation:Counseling Given: Not Answered Alcohol UseStandard Drinks/WeekCommentsYes1 (1 standard drink = 0.6 oz pure alcohol)CommentsNoSex and Gender InformationValueDate RecordedSex Assigned at BirthNot on fileLegal RvfKdsony80/13/2025 2:59 PM EDTGender Identity Not on fileSexual OrientationNot on file Last Filed Vital Signs Vital SignReadingTime TakenCommentsBlood Qtfcwqsg777/7010 2:26 PM EDT Cafaz497305/11/2025 8:06 AM EDTTemperature--Respiratory Rate--Oxygen Saturation-- Inhaled Oxygen Concentration--Jqzpec45 kg (150 lb)06/15/2025 2:26 PM EDTHeight 172.7 cm (5' 8 )05/11/2025 8:06 AM EDTBody Mass Index22.8105/11/2025 8:06 AM EDT Plan of Treatment Health MaintenanceDue DateLast DoneCommentsCOVID-19 Vaccine ( season) /10/2021, 12/02/2020Influenza Vaccine (#1)2025Pneumococcal Vaccine: Pediatrics (0 to 5 Years) and At-Risk Patients (6 to 64 Years)Aged Out No longer eligible based on patient's age to complete this topic Procedures Procedure NamePriorityDate/TimeAssociated DiagnosisCommentsUS PELVIS BNXUBOZQXNZVNqditxd67/27/2025 10:52 AM EDT Intrauterine contraceptive device threads lost, initial encounter from Last 3 Months Results * US pelvis transvaginal (06/28/2025 10:52 AM EDT)Anatomical RegionLaterality ModalityPelvisUltrasoundStudy GAStudy DateStudy EDDWorking VINEET (Source) 06/28/2025Specimen (Source)Anatomical Location / LateralityCollection Method / VolumeCollection TimeReceived Time Narrative 06/30/2025 12:53 PM EDT Images from the original result were not included. ?? Obstetrics & Gynecology ? [address] ? [address] ? [address] ?[address], [facility] ? [place] [address] ?[place] [address] ? - - - - - - - - - - - - - - - - - - - - - - - - - - - - - - - - - - - - - - - - - - - - - - - - - - - - - - - - - - - - - - - - - - Pelvic Ultrasound Patient name: Jenna Uribe : 2000 (24 y.o.) Date of exam: 06/28/25 - - - - - - - - - - - - - - - - - - - - - - - - - - - - - - - Indication: lost IUD strings Surgical History: none Method: Transvaginal ultrasound examination View: Adequate - - - - - - - - - - - - - - - - - - - - - - - - - - - - - - - Measurements: Uterus: 7.6 x 4.1 x 2.5 cm ??Volume: 41 cm?? Endometrial thickness: Right ovary: 4.7 x 3.4 x 3.2 cm ??Volume: 27 cm?? Left ovary: 2.6 x 1.4 x 1.5 cm Volume: 2.8 cm?? - - - - - - - - - - - - - - - - - - - - - - - - - - - - - - - Findings: Uterus: The uterus is normal in size and contour. Position: Anterverted Malformations: none Myometrium: The myometrium is homogenous in echotexture. Fibroid(s): none Endometrium: There are T-shaped linear echoes located within the endometrial canal with the crossbars in the expected location, just below the fundus. Cervix: The cervix appears unremarkable. - - - - - - - - - - - - - - - - - - - - - - - - - - - - - - - Right ovary: Visualized Morphology: normal appearing Cyst(s): The right ovary contains a single sonolucent cyst, measuring 26 x 27 x 23 cm. Doppler: power doppler shows ovarian blood profusion Right adnexa: no overt adnexal mass - - - - - - - - - - - - - - - - - - - - - - - - - - - - - - - Left ovary: Visualized Morphology: normal appearing Cyst(s): none Doppler: power doppler shows ovarian blood profusion Left adnexa: no overt adnexal mass - - - - - - - - - - - - - - - - - - - - - - - - - - - - - - - Cul de Sac: no free fluid - - - - - - - - - - - - - - - - - - - - - - - - - - - - - - - - - - - - - - - - - - - - - - - - - - - - - - - - - - - - - - - - - - Impression: The uterus is normal in size and contour. The myometrium is homogenous in echotexture. The endometrium appears normal in contour and thickness. There are T-shaped linear echoes located within the endometrial canal with the crossbars in the expected location, just below the fundus. The right ovary contains a single sonolucent cyst, measuring 26 x 27 x 23 cm. The left ovary appears normal in size and echotexture. There is no overt adnexal mass. There is no free fluid visible within the pelvis. - - - - - - - - - - - - - - - - - - - - - - - - - - - - - - - - - - - - - - - - - - - - - - - - - - - - - - - - - - - - - - - - - - Ordering/Reading Provider: Brett Lombardo M.D. ??Professional Development Manager: Nadia Guallpa RDMS Authorizing ProviderResult TypeResult StatusBrett Lombardo MDTHE [facility]IL[facility] US PROCEDURES Final Result from Last 3 Months Insurance Care Teams Team MemberRelationshipSpecialtyStart DateEnd Date William Greene MD [address] [place] [phone] PCP - GeneralFamily Medicine02/25/25
--- OUTSIDE RECORDS SUMMARY | 2025-08-05 12:12 | XMS_ITS | Clinical Summary ---
Author Organization [facility] Address [address] [place] [address] Phone Care Team Providers Care Improvement Spec Name Role Phone Unavailable Primary Care Provider Unavailabl e Encounters DateTypeDepartmentCare BabmBewmoerbfwx43/11/2025Telephone [facility] [address] [facility] [address] [place] [address] Aki June MD from Last 3 Months Social History Tobacco UseTypesPacks/DayYears UsedDateSmoking Tobacco: Never Assessed CommentsUnknownSex and Gender InformationValueDate RecordedSex Assigned at Not on fileLegal NewLrupyd67/11/2025 9:11 AM EDTGender IdentityNot on fileSexual OrientationNot on file Plan of Treatment Health MaintenanceDue DateLast DoneCommentsHIV Cadlcggwu00/15/2003Lipid Panel 2002Yearly Adult Hjiwcjvu83/15/2003MMR Vaccines (1 of 1 - Standard series) 2003HPV Vaccines (1 - 3-dose series)2017Meningococcal B Vaccine (1 of 2 - Standard)2018Hepatitis C Zpwycuhul75/15/2021Hepatitis B Vaccines (1 of 3 - 19+ 3-dose series)2Cervical Cancer Ghcududnu17/15/2024HPV/Cotest 4Pap Smear4DTaP/Tdap/Td Vaccines (1 - Tdap)2024Influenza Vaccine (#1)5COVID-19 Vaccine (1 - 2024- season)2025Zoster Vaccines (1 of 2)2052HIB VaccinesAged OutNo longer eligible based on patient's age to complete this topicHepatitis A VaccinesAged OutNo longer eligible based on patient's age to complete this topicIPV VaccinesAged OutNo longer eligible based on patient's age to complete this topicMeningococcal VaccineAged OutNo longer eligible based on patient's age to complete this topic Pneumococcal Vaccine: Pediatrics and At-Risk Adult PatientsAged OutNo longer eligible based on patient's age to complete this topicRotavirus VaccinesAged Out No longer eligible based on patient's age to complete this topic Insurance
--- OUTSIDE RECORDS SUMMARY | 2025-08-05 12:12 | XMS_ITS | Patient Health Record ---
Author Organization [facility] [place] Address [address] [place] [address] Care Team Providers Care Client Support Professional Name Role Phone Gurpreet Greene Primary Care Provider Kaye Sisi Unavailable [phone] Allergies No Known Allergies Results Component Value Reference Range Notes XR sinus min 3V Reviewed date:04/30/2025 08:33:52 AM Interpretation: Performing Lab: Notes/Report: Source Facility: [place] [address] XRay Report Signed Patient: JENNA URIBE I MR#: [id number] : 2000 Acct:[id number] Age/Sex: 24 / F ADM Date: 04/29/25 Loc: RAD Attending Dr: William Greene M.D. Ordering Physician: William Greene M.D. Date of Service: 04/29/25 Procedure(s): XR sinus min 3V Accession Number(s): [id number] cc: William Greene M.D. [place] [address] Patient Name: JENNA URIBE MRN: [id number] date: 2000 Sex: F Assigned Patient Location: RAD Current Patient Location: Accession/Order Number: [id number] Exam Date: 04/29/2025 17:48 Report Date: 04/30/2025 00:48 At the request of: WILLIAM GREENE MD Procedure: XR sinus min 3V XR sinus min 3V 04/29/2025 5:56 PM SIGNS AND SYMPTOMS: recurrent sinusitis J32.9 PROTOCOL: Frontal and lateral radiographs of the paranasal sinuses COMPARISON: None FINDINGS: The paranasal sinuses are well aerated. Normal ribs are within normal limits. The facial bones are grossly intact. XR/XR sinus min 3V IMPRESSION: The paranasal sinuses are well aerated. Impression dictated by: Doyle Parson M.D. 04/30/2025 12:48 AM Dictation Location: [place] [address] Electronically authenticated by: [id number] Y Date: 04/30/2025 00:48 Dictated By: Doyle Parson M.D. Signed By: 04/30/25 0051 DD/ TD/TT: Business Owner/Engineer: CBC AUTO DIFF Reviewed date:09/07/2024 01:27:49 PM Interpretation: Performing Lab: Notes/Report: [facility] , White Blood Count 8.3 4.0-11.0 10 3/uL Red Blood Count4.514.20-5.40 10 6/aYVjwuqqudrc50.312.0-16.0 g/bEEyrecntukd13.0 36.0-48.0 %Mean Corpuscular Sessfz09.981.0-99.0 fLMean Corpuscular Hemoglobin 31.726.7-34.0 pgMean Corpuscular HGB Conc34.929.9-35.2 g/dLRed Cell Distribution Width11.711.0-15.0 %Platelet Hhdzx742050-997 10 3/uLMean Platelet Volume9.49.5- 13.5 fLPerforming Lab:see noteML - [facility] LBPROF CHEM 8 (BAS METB) Reviewed date:09/07/2024 01:27:49 PM Interpretation: Performing Lab: Notes/Report: [facility] ,Akkpjz131363-229 mmol/LPotassium4.33.5-5.1 mmol/IBzxhjknm66770-718 mmol/LCarbon Ohwnkqt10.221.0-32.0 mmol/LAnion Gap13.7Qovbalz57413-596 mg/dLBlood Urea Fbdkyoew38.07.0-18.0 mg/dLCreatinine0.920.55-1.02 mg/dLEstimated GFR ( Whitney>60>=60 mL/min/1.73m 2Estimated GFR (Non- Dahlia>60>=60 mL/min/1.73m 2BUN Creatinine Ratio16.0Jobbone0.28.5-10.1 mg/dLPerforming Lab:see noteML - [facility] LBManual Differential Reviewed date:09/07/2024 01:27:49 PM Interpretation: Performing Lab: Notes/Report: [facility] ,Segmented Neutrophils % Luvfcf65.043.0-75.0Band Neutrophils %15.00-5 % Lymphocytes Percent Manual2.020.5-60.0 %Monocytes Percent Manual1.01.7-12.0 % Eosinophils Percent Manual1.00.9-7.0 %Basophils Percent Manual0.00.2-2.0 % Segmented Neut Absolute Manual6.721.4-6.5 10 3/uLBand Neutrophils Absolute1.2 0.0-0.3 10 3/uLLymphocytes Absolute Manual0.161.20-3.80 10 3/uLMonocytes Absolute Manual0.080.30-0.80 10 3/uLEosinophils Absolute Manual0.080.00-0.70 10 3/uLBasophils Abs Manual0.000.00-0.10 10 3/uLPerforming Lab:see note - [facility] LBHCG Qualitative* Reviewed date:09/07/2024 01:27:49 PM Interpretation: Performing Lab: Notes/Report: [facility] ,HCG QualitativeNEGATIVENEGATIVEPerforming Lab:see note - [facility] LB Reason For Referral Diagnosis 1 Recurrent sinusitis (J32.9) Referral Organization [facility] Referring Provider First Name Gurpreet Referring Provider Last Name Jc Referring Provider Speciality Family Med santino Referred Provider Nathalie Saunders Referred Provider Specialty Otolaryngolo gy Referral Priority Routine Medications Medication SIG (Take, Route, Frequency, Duration) Notes Start Date End Date Status Meloxicam 15 MG 1 tablet Orally Once a day; Dura tion: 30 days 5ActiveImitrex 100 MG1 tablet at least 2 hours between doses as needed Orally Twice a ocdABP285ActivebuPROPion HCl ER (XL) 300 MGTAKE 1 TABLET BY MOUTH EVERY DAY IN THE MORNING; Duration: 90 daysActive Social History Alcohol Screen (Audit-C) Question Answer Notes Did you have a drink containing alcohol in the p ast year? No Nakosf0JdqohmlwkhufwnFgnccjqaONHPQ-H (Standard) Question Answer Notes Did you have a drink containing alcohol in the p ast year? Yes How often did you have six or more drinks on one occasion in the past year?Never (0 point)How many drinks did you have on a typical day when you were drinking in the past year?1 or 2 drinks (0 point)How often did you have a drink containing alcohol in the past year?Monthly or less (1 point)Rlvtfs7AadrgjjqqwathwGhqkrpez Problems Problem Type SNOMED Code ICD Code Onset Dates Problem Status W/U Status Risk Notes Problem Right upper quadrant pain (94926 7006) Right upper quadrant pain (R10.11) ActiveconfirmedProblemWell adult (507024748)Well adult (Z00.00)Activeconfirmed ProblemShoulder joint pain (762309659)Shoulder pain, right (M25.511)Active confirmedProblemSeasonal allergy (585328580)Seasonal allergies (J30.2)Active confirmedProblemRecurrent sinusitis (582555623)Recurrent sinusitis (J32.9)Active confirmed Vital Signs Blood pressure diastolic 78 mm Hg 08/05/2025 Xceriv01 in08/05/2025lood pressure fmjvwxna257 mm Hg08/05/20259400Unswcg184.4 lbs 08/05/2025BMI23.16 kg/m208/05/2025 Encounters Encounter Location Date Provider Diagnosis [facility] [address] [place] [address] 05/14/2025 Gurpreet Hoy Seasonal allergies J30.2 [facility] [address] [place] [address] 08/05/2025 Gurpreet Hoy Shoulder pain, right M25.511 [facility] [address] [place] [address] 01/26/2025 Sisi Restrepo Seasonal allergies J30.2 [facility] [address] [facility] [address] 09/12/2024 Gurpreet Jc Well adult Z00.00 [facility] [address] [facility] [place] [address] 09/14/[address] [facility] [facility] [place] [address] 12/07/2024[facility] [place] [address]/[facility] [place] [address]/05/2025[facility] [place] [address]/Doug HoyRecurrent sinusitis J32.9 [facility] [place] [address] 05/06/2025[facility] [place] [address]/12/2024[facility] [place] [address]/[facility] [place] [address]/[facility] [place] [address]/Doug Hoy Assessments Encounter Date Diagnosis (ICD Code) Assessment Notes Treatment Notes Treatment Clinical Notes Section Notes 01/26/2025 Seasonal allergies (ICD-10 - J30 .2) Kenalog 80 discussed OTC meds rx eye drops if needed 05/14/2025Seasonal allergies (ICD-10 - J30.2)08/05/2025Shoulder pain, right (ICD-10 - M25.511)09/12/2024Well adult (ICD-10 - Z00.00)04/28/2025Recurrent sinusitis (ICD-10 - J32.9) Plan Of Treatment Pending Test Test Name Order Date LUMBAR PUNCTURE 02/16/2016 CMP (COMPLETE METABOLIC PANEL) 3 IRON, TOTAL 07/10/2023 CBC WITH DIFF (EXP 07/2025) 07/10/2023 H PYLORI ANTIBODY IGG 07/10/2023 MRI SHOULDER RT WO CON 08/05/2025 XR SHOULDER RT 2V or > 08/05/2025 THYROID PANEL (T4/TSH/FREE T3) 3 Insurance Providers Payer Name Payer Address Payer Phone Subscriber Number Group Number Insured Name Patient Relationship to Insured Coverage Start Date Coverage End Date O [address] [place], [place] [id number] ANNIE URIBE Natural Child - Insured does not have Financial Responsibility (includes legally adopted child) 5 Medications Administered Medication Instructions Date of Administration Dosage Notes Triamcinolone 40 mg/ml mgTriamcinolone 40 mg/ml mg Medical (General) History Medical History History ICD Code COVID-19 U07.1 Deviated septum J34.2 Epistaxis R04.0 Insomnia G47.00 Surgical History Surgery Date(Month/Year) Spinal Tap 2012 Nasal Surgery 2020 TONSILLECTOMY,UNDER 12YRS 2014
--- OUTSIDE RECORDS SUMMARY | 2025-08-05 12:13 | XMS_ITS | CCD ---
Author Organization [facility] Care Team Providers Care Behavioral Health Care Manager Name Role Phone GREG GERARDO Admitting Unavailable GREG GERARDO Attending Unavailable GREG GERARDO Consulting Unavailable REQUEST, NONE LISTED Admitting Unavaila ble REQUEST, DR SERRANO LISTED Attending Unavaila ble REQUEST, DR SERRANO LISTED Consulting Unavaila ble BENJAMÍN, DR MAYES Primary Care Unavailable HOMERO SOLOMON Admitting Unavailable NEHA, HOMERO Attending Unavailable HOMERO SOLOMON Consulting Unavailable BENJAMÍN, DR MAYES Admitting Unavailable BENJAMÍN, DR MAYES Attending Unavailable BENJAMÍN, DR MAYES Consulting Unavailable Sugey Greene MD Primary Care Provider [phone] Sugey Greene MD Primary Care Provider [phone] JENNIFER LOMBARDO Attending Unavailable JENNIFER LOMBARDO Attending Unavailable JENNIFER LOMBARDO Referring Unavailable NATHALIE MUNOZ Attending Unavailable Sugey Greene MD Primary Care Provider [phone] NATHALIE MUNOZ Attending Unavailable JENNIFER LOMBARDO Attending Unavailable Medications Current Medications MedicationDrug Class(es)DatesSig (Normalized)Sig (Original)acetaminophen 500 mg oral tablet (10 sources)take 1 tablet by mouth in the morningacetaminophen (Tylenol) 500 MG tablet Take 500 mg by mouth in the morning and 500 mg before bedtime. Eylkdx97 hr buPROPion hydrochloride 150 mg extended release oral tablet (10 sources)Aminoketonetake 1 tablet by mouth once dailybuPROPion XL (Wellbutrin XL) 150 MG 24 hr tablet Take 150 mg by mouth Daily Activefluticasone propionate 0.05 mg/actuat metered dose nasal spray (12 sources)CorticosteroidStart: 04-01-2024 End: 33-24-3828fnmx 2 spray(s) nasal route once dailyfluticasone (Flonase) 50 MCG/ACT nasal spray Indications: Nasal valve collapse Administer 2 sprays into each nostril Daily Shake gently. Before first use, prime pump. After use, clean tip and replacecap. 48 g 3 05/11/2025 05/11/2026 Activehyoscyamine sulfate 0.125 mg sublingual tablet (6 sources)hyoscyamine (Levsin) 0.[address] 125 mcg under the tongue every 4 (four) hours if needed for bladder spasms Activepantoprazole 40 mg delayed release oral tablet (6 sources)Proton Pump Inhibitortake 1 tablet by mouth before mealtime pantoprazole (ProtoNix) 40 MG EC tablet Take 40 mg by mouth in the morning. Take before meals. Do not crush, chew, or split. Activerizatriptan 10 mg oral tablet (2 sources)Serotonin-1b and Serotonin-1d Receptor Agonistrizatriptan (Maxalt) 10 MG tablet Take 10 mg by mouth 1 (one) time if needed for migraine May repeat in 2 hours if unresolved. Do not exceed 30 mg in 24 hours. ActiveSUMAtriptan 50 mg oral tablet (2 sources)Serotonin-1b and Serotonin-1d Receptor AgonistSUMAtriptan (Imitrex) 50 MG tablet Take 50 mg by mouth 1 (one) time if needed for migraine May repeat dose once in 2 hours if no relief. Do not exceed 2 doses in 24 hours. Active Completed/Discontinued Medications MedicationDrug Class(es)DatesSig (Normalized)Sig (Original)ciprofloxacin 500 mg oral tablet (6 sources)Quinolone Antimicrobial End: 89-90-6816lpbbwurljddqg (Cipro) 500 MG tablet Take by mouth 06/15/2025 Discontinued (Therapy completed)levonorgestrel 0.461911 mg/hr intrauterine system (4 sources)Progestin, Progestin-containing Intrauterine DeviceStart: 03-02-2025 End: 13-20-9824Hhjcfelsgudxja intrauterine deviceStart: 03-02-2025 End: 00-60-7278Rlrn PRN Procedure, Starting on Sat03/02/25 at 1345, For 1 dose Levonorgestrel (LILETTA, 52 MG, IU) by Intrauterine route ActivemiSOPROStol 0.2 mg oral tablet (3 sources)Prostaglandin E1 AnalogStart: 02-23-2025 End: 34-59-2450lqINPSXZzbn (Cytotec) 200 MCG tablet Indications: Encounter for IUD insertion Take one tablet the night before the procedure, take one tablet the morning of the procedure 2 tablet 02/23/2025 03/02/2025 Discontinued (Therapy completed)ondansetron 4 mg oral tablet (6 sources)Serotonin-3 Receptor Antagonist End: 71-06-7222rghwzdzvjht (Zofran) 4 MG tablet Take by mouth 06/15/2025 Discontinued (Ineffective)phenazopyridine hydrochloride 200 mg delayed release oral tablet (6 sources) End: 90-45-9467vjjl 1 tablet by mouth three times daily as needed for muscle spasmsphenazopyridine (Pyridium) 200 MG tablet Take 200 mg by mouth 3 (three) times a day as needed for bladder spasms 06/15/2025 Discontinued (Ineffective) Problems Active Problems Problem ClassificationProblemDateDocumented DateEpisodic/ChronicComplication of device; implant or graft (2 sources)IUD threads lost; Translations: [Displacement of intrauterine contraceptive device, initial encounter]37-19-1564MkdbjpxpXwujr and electrolyte disorders (1 source)Dehydration; Translations: [DEHYDRATION]Onset: 50-01-9685Bjfayibh Immunizations and screening for infectious disease (7 sources)Patient encounter status; Translations: [Encounter for screening for human papillomavirus (HPV)]91-95-0443DejqnbgdIxrqeblib disorders (2 sources)Break-through bleeding; Translations: [Excessive and frequent menstruation with irregular cycle]84-55-6858YkolnqdAzzxcr and vomiting (1 source)Nausea with vomiting, unspecified; Translations: [NAUSEA WITH VOMITING UNSPECIFIED]Onset: 33-11-9743IxczxsufXbhtj acquired deformities (2 sources)Incompetence of nasal valve; Translations: [Nasal valve collapse] 87-74-8911FptlxjmnPjwkd female genital disorders (2 sources)Postcoital bleeding; Translations: [Postcoital and contact bleeding] 78-89-5259WfciicuPzmkl screening for suspected conditions (not mental disorders or infectious disease) (3 sources)Abnormal electrocardiogram [ECG] [EKG]; Translations: [Cancer cervix screening status]Onset: 541739-97-8106MldpxrmpUsvmuomx codes; unclassified (1 source)Other specified postprocedural states; Translations: [OTH SPECIFIED POSTPROCEDURAL STATES]Onset: 49-62-8457TtiojfbfLwvszjg (4 sources)Syncope and collapse; Translations: [SYNCOPE AND COLLAPSE]Onset: 61-99-3084PnefhfgeSsrhmrjrnetv (3 sources)CONTACT W/AND (SUSP) EXPOS COVID-19; Translations: [CONTACT W/AND (SUSP) EXPOS COVID-19]Onset: 10-12-2020 Past or Other Problems Problem ClassificationProblemDateDocumented DateEpisodic/ChronicOther upper respiratory disease (10 sources)Nasal obstruction; Translations: [Other specified disorders of nose and nasal sinuses]Onset: 041604-48-0507CebpubypOraox upper respiratory disease (10 sources)Disorder of nasal cavity; Translations: [Other specified disorders of nose and nasal sinuses]Onset: 220324-43-9909LlvzrvyrRrfyknvbnqhn (1 source)CONTACT W/AND (SUSP) EXPOS COVID-19; Translations: [CONTACT W/AND (SUSP) EXPOS COVID-19]Onset: 10-08-2020 Results Test NameValueInterpretationReference RangeFacilityHCG ( test) Ql (U)on 97-18-5308Srbk Test, UrNegativeNegativeNOMS HealthcareNOAZ HealthcareIUD Insertionon 00-70-4863Rbygkremy Lombardo MD 03/03/2025 9:22 AM IUD Insertion Performed by: Jennifer Lombardo MD Authorized by: Jennifer Lombardo MD Procedure: IUD insertion Consent obtained by patient, parent, or legal power of immigration attorney - including discussion of procedure risks and [...] procedure well: yes [facility] MANUAL DIFFon 25-23-3343RERDJCLA LYMPH #NormalThe Scio HospitalComment on above:Performed By: #### SELENE #### [facility] [address] [address] [address] Sirena RodriguezYPICAL LYMPH %NormalThe Scio HospitalComment on above: Performed By: #### SELENE #### [facility] [address] [place] [address] Dr. Sirena Cline #Normal0.0-0.3The [facility] HospitalComment on above: Performed By: #### SELENE #### [facility] [address] [place] [address] Dr. Sirena Cline %Normal0-5The [facility] HospitalComment on above:Performed By: #### SELENE #### [facility] [address] [place] [address] Dr. Sirena Owens #0.00 103/ulNormal0.00-0.10The [facility] HospitalComment on above:Performed By: #### SELENE #### [facility] [address] [place] [address] Dr. Sirena Owens %0.0 %Critically low0.2-2.0The [facility] HospitalComment on above:Performed By: #### SELENE #### [facility] [address] [place] [address] Dr. Sirena Justice #NormalThe Scio HospitalComment on above:Performed By: #### SELENE #### [facility] [address] [place] [address] Dr. Sirena Justice %NormalWvumedicine Barnesville HospitalComment on above:Performed By: #### SELENE #### [facility] [address] [place] [address] Dr. Sirena GilRRECTED WBCNormal4.0-11.0The [facility] HospitalComment on above: Performed By: #### SELENE #### [facility] [address] [address] [address] Sirena Muhammad #0.00 103/ulNormal0.00-0.70The [facility] HospitalComment on above:Performed By: #### SELENE #### [facility] [address] [address] [address] Sirena Muhammad%0.0 %Critically low0.9-7.0The [facility] HospitalComment on above:Performed By: #### SELENE #### [facility] [address] [address] [address] Sirena WeinbergT42.6 %Mqokcd34.0-48.0The [facility] HospitalComment on above: Performed By: #### SELENE #### [facility] [address] [place] [address] Dr. Sirena GavinHGB14.3 g/ngAvxsmz07.0-16.0The [facility] HospitalComment on above: Performed By: #### SELENE #### [facility] [address] [place] [address] Dr. Sirena Law #1.12 103/ulCritically low1.20-3.80The [facility] Comment on above:Performed By: #### SELENE #### [facility] [address] [place] [address] Dr. Sirena Law%13.0 %Critically low20.5-60.0The [facility] HospitalComment on above:Performed By: #### SELENE #### [facility] [address] [place] [address] Dr. Sirena HallH29.2 mkEzmhjv88.7-34.0The [facility] HospitalComment on above: Performed By: #### SELENE #### [facility] [address] [place] [address] Dr. Sirena HallHC33.6 g/tsRpyivc74.9-35.2The [facility] HospitalComment on above:Performed By: #### SELENE #### [facility] [address] [place] [address] Dr. Sirena Jacinto87.1 wXMssuas75.0-99.0The [facility] HospitalComment on above: Performed By: #### SELENE #### [facility] [address] [place] [address] Dr. Sirena SernaOCYTE #NormalPremier Health [facility] North HospitalComment on above: Performed By: #### SELENE #### [facility] [address] [place] [address] Dr. Sirena SernaOCYTE %NormalPremier Health Miami [facility] HospitalComment on above: Performed By: #### SELENE #### [facility] [address] [place] [address] Dr. Sirena Allen#0.34 103/ulNormal0.30-0.80The [facility] HospitalComment on above:Performed By: #### SELENE #### [facility] [address] [place] [address] Dr. Sirena Allen%4.0 %Normal1.7-12.0The [facility] HospitalComment on above: Performed By: #### SELENE #### [facility] [address] [place] [address] Dr. Sirena HirschV9.0 fLCritically low9.5-13.5The [facility] HospitalCommemorial healthcare on above:Performed By: #### SELENE #### [facility] [address] [place] [address] Dr. Sirena RayOCYTE #NormalWvumedicine Barnesville HospitalCommemorial healthcare on above:Performed By: #### SELENE #### [facility] [address] [place] [address] Dr. Sirena RayOCYTE %NormalWvumedicine Barnesville HospitalComment on above:Performed By: #### CBCRUBY #### [facility] [address] [place] [address] Dr. Sirena GavinNRBCNormalThe [facility] HospitalComment on above:Performed By: #### SELENE #### [facility] [address] [place] [address] Dr. Sirena BergmanT295 103/cqUdpbck320-055Jlf [facility] HospitalComment on above: Performed By: #### CBCMAN #### [facility] [address] [place] [address] Dr. Sirena GarciaC4.89 106/ulNormal4.20-5.40The [facility] HospitalComment on above:Performed By: #### CBCMAN #### [facility] [address] [place] [address] Dr. Sirena GavinRDW13.1 %Bzlixd12.0-15.0The [facility] HospitalComment on above: Performed By: #### CBCMAN #### [facility] [address] [place] [address] Dr. Sirena Sepulveda #7.14 103/ulCritically high1.40-6.50The [facility] Comment on above:Performed By: #### CBCMAN #### [facility] [address] [place] [address] Dr. Sirena Sepulveda %83.0 %Critically high43.0-75.0The [facility] HospitalComment on above:Performed By: #### CBCMAN #### [facility] [address] [place] [address] Dr. Sirena RosasBC8.6 103/ulNormal4.0-11.0The [facility] HospitalComment on above: Performed By: #### CBCMAN #### [facility] [address] [place] [address] Dr. Sirena GavinPROF CHEM 8 (BAS METB)on 46-81-5868Vusol gap [Moles/Vol]13.8 mmol/LNormalThe [facility] HospitalComment on above:Performed By: #### BMP #### [facility] [address] [place] [address] Dr. Sirena GavinCalcium [Mass/Vol]9.7 mg/dLNormal8.4-10.2The [facility] Comment on above:Performed By: #### BMP #### [facility] [address] [place] [address] Dr. Sirena GavinChloride [Moles/Vol]99 mmol/TEwzhde13-136Hcx [facility] Comment on above:Performed By: #### BMP #### [facility] [address] [place] [address] Dr. Sirena GavinCO2 [Moles/Vol]27.1 mmol/UHhshmu26.0-30.0The [facility] Comment on above:Performed By: #### BMP #### [facility] [address] [address] [address] Sirena GavinCreatinine [Mass/Vol]0.83 mg/dLNormal0.52-1.04The [facility] HospitalComment on above:Performed By: #### BMP #### [facility] [address] [place] [address] Dr. Sirena ElkinsGFR-AF CAMEROONIAN>60Normal>=60The [facility] HospitalComment on above:Performed By: #### BMP #### [facility] [address] [place] [address] Dr. Sirena ElkinsGFR-NON AF CAMEROONIAN>60Normal>=60The [facility] HospitalComment on above:Performed By: #### BMP #### [facility] [address] [place] [address] Dr. Sirena GavinGlucose [Mass/Vol]107 mg/dLCritically nblq58-499Cfi [facility] HospitalComment on above:Performed By: #### BMP #### [facility] [address] [address] [address] Sirena GavinPotassium [Moles/Vol]3.9 mmol/LNormal3.4-5.0The [facility] Comment on above:Performed By: #### BMP #### [facility] [address] [place] [address] Dr. Sirena GavinSodium [Moles/Vol]136 mmol/LCritically swp261-940Scf [facility] HospitalComment on above:Performed By: #### BMP #### [facility] [address] [place] [address] Dr. Sirena GavinUrea nitrogen [Mass/Vol]9.0 mg/dLNormal6.4-19.3The [facility] HospitalComment on above:Performed By: #### BMP #### [facility] [address] [place] [address] Dr. Sirena GavinUrea nitrogen/Creatinine [Mass ratio]10.8 mg/mgNoMercy Health St. Joseph Warren HospitalCommemorial healthcare on above:Performed By: #### BMP #### [facility] [address] [place] [address] Dr. Sirena Luevano Covid-19 PCR (CVDRPD)on 03-78-9873Ipbjzwiq LDT InfoSEE BELOWWood County HospitalCommemorial healthcare on above:Result Comment: This test is not yet approved or cleared by the [place] Food and Drug Administration (FDA) . This test was developed by [employer], [facility]. The performance characteristics of this test were validated by The [facility]. The results are not intended to be used as the sole means for clinical diagnosis or patient management decisions. The [facility] is authorized under Clinical Laboratory Improvement Amendments (CLIA) to perform high-complexity testing. When diagnostic testing is negative, the possibility of a false negative should be considered in the context of a patients recent exposures and the presence of clinical signs and symptoms consistent with SARS-CoV-2.Performed By: #### CVDRPD #### [facility] [address] [place] [address] Jeancarlos CorralUgkzoBTSE-YzR-1 (COVID-19) RNA ROS+probe Ql (Unsp spec)Not detectedNormal NOT DETECTEDThe [facility] HospitalCommemorial healthcare on above:Result Comment: This test is not yet approved or cleared by the [place] Food and Drug Administration (FDA). This test was developed by [employer], [facility]. The performance characteristics of this test were validated by [facility]. The results are not intendedto be used as the sole means for clinical diagnosis or patient management decisions. The [facility] is authorized under Clinical Laboratory Improvement Amendments (CLIA) to perform high-complexity testing.Performed By: #### CVDRPD #### [facility] [address] [place] [address] Jeancarlos Angel Vital Signs Date TimeVital SignValuePerforming LumnlosmgCbzhvvhp71-17-3842 14:26-0400Body mass index (BMI) [Ratio]22.81 kg/c8VxtgsJennifer Lombardo MD Work Phone: [phone] [place], [place] 5394310-14-2025 14:26-0400Body igyova84.04 kgJennifer Lombardo MD Work Phone: [phone] [place], [place] 5394310-14-2025 14:26-0400Diastolic blood ixzapvnb05 mm[Hg]Jennifer Lombardo MD Work Phone: [phone] [place], [place] 5394310-14-2025 14:26-0400Systolic blood gtgewfdm697 mm[Hg]Jennifer Lombardo MD Work Phone: [phone] [place], [place] 5394309-09-2025 08:06-0400Body iibqnx560.7 cmNathalie Munoz MD Work Phone: [phone] [place], [place] 0590509-09-2025 08:06-0400Body mass index (BMI) [Ratio]22.66 kg/v4NelxirNathalie Munoz MD Work Phone: [phone] [place], [place] 0590509-09-2025 08:06-0400Body .59 kgNathalie Munoz MD Work Phone: [phone] [place], [place] 0590509-09-2025 08:06-0400Diastolic blood moquhlsh63 mm[Hg]Nathalie Munoz MD Work Phone: [phone] [place], [place] 0590509-09-2025 08:06-0400Heart rate79 /min Nathalie Munoz MD Work Phone: [phone] [place], [place] 0590509-09-2025 08:06-0400Systolic blood mngobxcz068 mm[Hg]Nathalie Munoz MD Work Phone: [phone] [place], [place] 0590507-01-2025 15:50-0400Diastolic blood mm[Hg]Jennifer Lombardo MD Work Phone: [phone] [place], [place] 5394307-01-2025 15:50-0400Systolic blood plgzotkx417 mm[Hg]Jennifer Lombardo MD Work Phone: [phone] [place], [place] 5394306-24-2025 15:00-0400Body mass index (BMI) [Ratio]21.44 kg/w5KjlfoJennifer Lombardo MD Work Phone: NO Iajqorpncw68-76-2662 15:00-0400Body bippzf54.96 kgJennifer Lombardo MD Work Phone: NO Healthcare Encounters Encounter DateEncounter TypeCare ProviderFacilityStart: 06-28-2025 End: 65-52-3318ozfghqxwrnMOIHB PRINTYNot AvailableStart: 06-15-2025 End: 94-94-3430Seomhz outpatient visit 15 minutesJennifer Lombardo MD Work Phone: [facility] OBGYNComment on above:Intrauterine contraceptive device threads lost, initial encounter (Primary Dx)Start: 06-15-2025 End: 99-75-7069rrnpwvbwzsNKDBESadiq Hanna AvailableStart: 06-15-2025 End: 53-86-5515Psasszdameon Lombardo MD Work Phone: [facility] OBGYNStart: 06-15-2025 End: 43-68-8481Tpqclwguillermina Lombardo MD Work Phone: [facility] OBGYNStart: 05-11-2025 End: 56-02-3078Gzwawddameon Munoz MD Work Phone: [facility] OtolaryngologyStart: 05-11-2025 End: 98-70-2501Gfprxxdameon Munoz MD Work Phone: [facility] OtolaryngologyStart: 05-11-2025 End: 98-64-2107Tcqpbm outpatient visit 15 minutesNathalie Munoz MD Work Phone: [facility] OtolaryngologyComment on above:Nasal valve collapse (Primary Dx)Start: 05-11-2025 End: 36-59-6139mnprsyfbwpQLEPMUJonah Light AvailableStart: 03-02-2025 End: 66-20-8962oogvnnspasBKBNR J PRINTYNmoe AvailableStart: 03-02-2025 End: 88-30-6553Sjdxlgm encounter Halie Lombardo MD Work Phone: noAD[facility] OBComment on above:Encounter for IUD insertionStart: 02-23-2025 End: 69-44-9954txdjvzggkjFAHUT J PRINTYNot AvailableStart: 02-23-2025 End: 54-03-9378Mhbesbg preventive medicine new pt age 18-39yrMaria Isabel Lombardo MD Work Phone: noms [facility] OBComment on above:Well woman exam with routine gynecological exam; Cervical cancer screening; Screening for HPV (human papillomavirus); Breakthrough bleeding; Postcoital bleeding; Encounter for IUD insertion; Screen for STD (sexually transmitted disease)Start: 02-23-2025 End: 85-14-9036Ivszzjh encounter Halie Lombardo MD Work Phone: noAZ HealthcareStart: 02-23-2025 End: 51-87-8845Blgohr Katelynn Lombardo MD Work Phone: noms [facility] OBStart: 02-23-2025 End: 23-12-2566Tzjhxr Katelynn Lombardo MD Work Phone: noms [facility] OBStart: 04-01-2024 End: 54-91-1577rvfbjqcfdnQKQAOM H TIMMISNot AvailableStart: 08-16-2021 End: 19-33-5939ajvemnszxlSB SUGEY HOYFacility:Z4Rrndc: 12-22-2020 End: 94-57-4385zkbxfxtettOKYZBV ROSSFacility:U9Qygas: 12-02-2020 End: 72-66-0276lrqvobthxjIJ NONE LISTED REQUESTFacility:T4Bdmmr: 10-08-2020 End: 91-63-7638obpzszhmyzRS SUGEY HOYFacility:H1 Procedures DateProcedureProcedure DetailPerforming ClinicianStart: 48-00-9371Xqvoa test visual color cmprsn methMaria Isabel Lombardo MD Work Phone: start: 13-89-4361JXP INSERTIONJennifer Lombardo MD Work Phone: start: 08-21-2021H/O: surgeryS/P nasal septoplasty Jennifer Lombardo MD Work Phone: Plan of Treatment DateCare ActivityDetailAuthorStart: 06-15-2025 End: 01-92-5142Tdpkwaa encounter dmhsueeaf29/14/2025 2:30 PM EDT Office [facility] [address] [place] [phone] Jennifer Lombardo MD [address] [place] [address] Well woman exam with routine gynecological exam; control counselingNOMS [place] OBGYNComment on above:Well woman exam with routine gynecological exam; control counselingStart: 05-11-2025 End: 52-12-8153Piluhxm encounter bpgikvyfg32/09/2025 8:10 AM EDT Office [facility] [address] [place] [phone] Nathalie Munoz MD [address] [place] [address] ArrivedNOMS [place] OtolaryngologyComment on above:ArrivedStart: 58-31-0057Opbtdrhqh vaccinationNOMS HealthcareIGP, APT HPV,RFX 16/18,45IGP, APT HPV,RFX 16/18,45 Lab Routine Cervical cancer screening Screening for HPV (human papillomavirus) Ordered: 02/23/2025NOAZ Healthcare Work Phone: comment on above:Ordered: 02/23/2025Neisseria gonorrhoeae DNA [Presence] in Cervical mucus by ROS with probe detectionC. trachomatis / N. gonorrhoeae, DNA probe Pathology and Cytology Routine Screen for STD (sexually transmitted disease) Ordered: 02/23/2025[facility]'sComment on above:Ordered: 02/23/2025 Payers DatePayer CategoryPayerPolicy [id number] Health InsuranceWYANDOT MEMORIAL HOSPITALCAL MUTUAL [id number] 2.840.1.932477.3.57[id number] 2.0.1.378080.3.57[id number] 2..1.404737.3.57[id number] 2.0.1.272900.3.57[id number] 2.0.1.597559.3.57[id number] 2.0.1.272316.3.57[id number] 2.0.1.657910.3.57[id number] 2.160.1.857225.3.579.2.48824-55-8196Dmwg-[id number] [id number] 2.840.1.4[id number] 2.16.840.1.859326.3.579.2.593 Social History DateTypeDetailFacilityStart: 30-60-2984Nwcmpbo smoking status NHISNever smoked tobaccoNOMS HealthcareStart: 83-07-1474Bykvsdu use and exposureSmokeless tobacco non-userNOMS HealthcareStart: 76-12-0936Jgrfwbhad beverage intakeEx-drinker (finding)[facility] HealthcareStart: 04-01-2024 End: 16-79-1210Ukptfwz of Social functionNOMS HealthcareStart: 04-01-2024 End: [id number] use panelNOMS HealthcareStart: 29-21-2697Imr assigned at birthNot on fileNOAZ HealthcareStart: 02-23-2025 End: 05-59-3737Zgjahsvvd beverage intakeCurrent drinker of alcohol (finding)[facility] HealthcareStart: [id number] Healthcare History of Present illness Narrative 06-15-2025 Note Date & [id number] History of Present illness Narrative* Jennifer Lombardo MD - 06/15/2025 2:30 PM EDT Images from the original note were not included. Jennifer Lombardo MD Obstetrics and Gynecology Patient: Pascual Desai, : 2000 (24 y.o.) DOS 06/15/25 Exam Date: 06/15/2025 HPI: Pt is pleased with IUD. Periods are very light Visit Vitals BP 120/70 Wt 150 lb LMP (LMP Unknown) BMI 22.81 kg/m OB Status IUD Smoking Status Never BSA 1.81 m OB History Para Term AB Living 0 0 0 0 0 0 SAB IAB Ectopic Multiple Live Births 0 0 0 0 0 Obstetric Comments Pap: 02/24-Neg JOSHUA: HPV Neg Liletta IUD 03/26; occasional spotting Medication and Allergies Medication Documentation Review Audit Reviewed by Rody Snyder MA ([employer]) on 06/15/25 at 1429 Medication Order Taking? Sig Documenting Provider Last Dose Status acetaminophen (Tylenol) 500 MG tablet [id number] Take 500 mg by mouth in the morning and 500 mg before bedtime. Active buPROPion XL (Wellbutrin XL) 150 MG 24 hr tablet [id number] Take 150 mg by mouth Daily Active Discontinued 06/15/251427 fluticasone (Flonase) 50 MCG/ACT nasal spray [id number] Administer 2 sprays into each nostril Daily Shake gently. Before first use, prime pump. After use, clean tip and replace cap. Nathalie Munoz MDActive hyoscyamine (Levsin) 0.125 MG SL tablet [id number] Place 125 mcg under the tongue every 4 (four) hours if needed for bladder spasms Nathalie Munoz MD Active Levonorgestrel (LILETTA, 52 MG, IU) [id number] Yes by Intrauterine route Jennifer Lombardo MD Active Discontinued 06/15/251427 pantoprazole (ProtoNix) 40 MG EC tablet [id number] Take 40 mg by mouth in the morning. Take before meals. Do not crush, chew, or split. Nathalie Munoz MD Active Discontinued 06/15/251427 Allergies[1] Medical History[2] Surgical History[3] Physical Exam: Objective Physical Exam Constitutional: Appearance: Normal appearance. Genitourinary: Vulva normal. No vaginal discharge or bleeding. No cervical lesion. No IUD strings visualized. Breasts: Right: Normal. Left: Normal. Pulmonary: Effort: Pulmonary effort is normal. Abdominal: General: Abdomen is flat. Palpations: Abdomen is soft. Neurological: Mental Status: She is alert. Assessment/Plan ICD-10-CM 1. Intrauterine contraceptive device threads lost, initial encounter T83.32XA Use condoms Check sono No orders of the defined types were placed in this encounter. [1] No Known Allergies [2] History reviewed. No pertinent past medical history. [3] Past Surgical History: Procedure Laterality Date IR LUMBAR PUNCTURE 02/28/2016 IR LUMBAR PUNCTURE 02/28/2016 NASAL SEPTUM SURGERY Bilateral 2020 [facility] TONSILLECT[facility]Y documented in this encounterNOMS Healthcare History of Present illness Narrative 05-11-2025 Note Date & [id number] History of Present illness Narrative* Nathalie Munoz MD - 05/11/2025 8:10 AM EDT Subjective Patient ID: Pascual Desai is a 24 y.o. female who presents for Sinusitis (Recurrent sinusitis) Pt stated her mom says she sounds like she is not getting enough air . H/O septoplasty, biul IT SMR and T&A by Dr Foss. Nasal steroids last year helped marginally. 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 buPROPion XL (Wellbutrin XL) 150 MG 24 hr tablet Take 150 mg by mouth Daily ciprofloxacin (Cipro) 500 MG tablet Take by mouth hyoscyamine (Levsin) 0.[address] 125 mcg under the tongue every 4 (four) hours if needed for bladder spasms ondansetron (Zofran) 4 MG tablet Take by mouth pantoprazole (ProtoNix) 40 MG EC tablet Take 40 mg by mouth in the morning. Take before meals. Do not crush, chew, or split. phenazopyridine (Pyridium) 200 MG tablet Take 200 mg by mouth 3 (three) times a day as needed for bladder spasms fluticasone (Flonase) 50 MCG/ACT nasal spray Administer 2 sprays into each nostril Daily Shake gently. Before first use, prime pump. After use, clean tip and replace cap. 16 g 11 No current facility-administered medications on file prior to visit. Objective Last Recorded Vitals Vitals: 05/11/25 0806 BP: 121/88 Pulse: 79 ENT Physical Exam Nose External Nose: nares narrow; external nose normal; Internal Nose: nasal mucosa normal; septum normal; bilateral inferior turbinates normal; Nose comments: Nasal valve collapse with a positive Dave maneuver Assessment/Plan Diagnoses and all orders for this visit: Nasal valve collapse - fluticasone (Flonase) 50 MCG/ACT nasal spray; Administer 2 sprays into each nostril Daily Shake gently. Before first use, prime pump. After use, clean tip and replace cap. Pt may benefit from a nasal valve procedure. Restart flonase. I will send a referral to Dr Aki June to evaluate for surgery documented in this encounterNOAZ Healthcare History of Present illness Narrative 03-02-2025 Note Date & [id number] History of Present illness Narrative* Jennifer Lombardo MD - 03/02/2025 1:45 PM EDTAssociated Order(s): IUD Insertion Post-Procedure Diagnose(s): Encounter for IUD insertion Images from the original note were not included. Patient ID: Pascual Desai is a 24 y.o. female. IUD Insertion Performed by: Jennifer Lombardo MD Authorized by: Jennifer Lombardo MD Procedure: IUD insertion Consent obtained by patient, parent, or legal power of immigration attorney - including discussion of procedurerisks and benefits, patient questions answered, and patient [...] well: yes Intended removal date: 8 years documented in this encounterNOAZ Healthcare History of Present illness Narrative 06-24-2025 Note Date & [id number] History of Present illness Narrative* Jennifer Lombardo MD - 02/23/2025 2:30 PM EDT Images from the original note were not included. Jennifer Lombardo MD Obstetrics and Gynecology Patient: Pascual Desai, : 2000 (24 y.o.) DOS 02/23/25 Exam Date: 02/23/2025 HPI: Establishing care. Wants to get Liletta IUD. Has done her research and is comfortable. Shawndy is her first ever PAP/pelvic Visit Vitals Wt 141 lb LMP 02/02/2025 BMI 21.44 kg/m OB Status Having periods Smoking Status Never BSA 1.75 m OB History Para Term AB Living 0 0 0 0 0 0 SAB IAB Ectopic Multiple Live Births 0 0 0 0 0 Obstetric Comments Pap: Never done No control; every month, normal blood loss, LMP: 02/02/25 Medication and Allergies Medication Documentation Review Audit Reviewed by Rody Snyder MA ([employer]) on 02/23/25 at 1501 Medication Order Taking? Sig Documenting Provider Last Dose Status acetaminophen (Tylenol) 500 MG tablet [id number] No Take 500 mg by mouth in the morning and 500 mg before bedtime. Taking Active buPROPion XL (Wellbutrin XL) 150 MG 24 hr tablet [id number] No Take 150 mg by mouth Daily Taking Active fluticasone (Flonase) 50 MCG/ACT nasal spray [id number] Administer 2 sprays into each nostril Daily Shake gently. Before first use, prime pump. After use, clean tip and replace cap. Luisa Hudson No Known Allergies History reviewed. No pertinent past medical history. Past Surgical History: Procedure Laterality Date IR LUMBAR PUNCTURE 02/28/2016 IR LUMBAR PUNCTURE 02/28/2016 NASAL SEPTUM SURGERY Bilateral 2020 [facility] Physical Exam: Objective Physical Exam Constitutional: Appearance: Normal appearance. Genitourinary: Vulva normal. No vaginal tenderness or bleeding. Right Adnexa: not palpable. Left Adnexa: not palpable. No cervical lesion. Uterus is not enlarged or tender. Breasts: Right: Normal. Left: Normal. Pulmonary: Effort: Pulmonary effort is normal. Abdominal: Palpations: Abdomen is soft. Neurological: Mental Status: She is alert. Assessment/Plan ICD-10-CM 1. Well woman exam with routine gynecological exam Z01.419 2. Cervical cancer screening Z12.4 IGP, APT HPV,RFX 16/18,45 3. Screening for HPV (human papillomavirus) Z11.51 IGP, APT HPV,RFX 16/18,45 4. Breakthrough bleeding N92.1 5. Postcoital bleeding N93.0 6. Encounter for IUD insertion Z30.430 miSOPROStol (Cytotec) 200 MCG tablet 7. Screen for STD (sexually transmitted disease) Z11.3 C. trachomatis / N. gonorrhoeae, DNA probe Orders Placed This Encounter Procedures IGP, APT HPV,RFX 16/18,45 Print requisition?: Yes documented in this encounterST[facility] Evaluation note Note Date & TypeNoteFacilityEvaluation note* Diagnosis Well woman exam with routine gynecological exam Routine gynecological examination Cervical cancer screening Screening for malignant neoplasm of the cervix Screening for HPV (human papillomavirus) Special screening examination for human papillomavirus (HPV) Breakthrough bleeding Metrorrhagia Postcoital bleeding Encounter for IUD insertion Insertion of intrauterine contraceptive device Screen for STD (sexually transmitted disease) Screening examination for venereal disease documented in this encounter [facility] Healthcare Evaluation note Note Date & TypeNoteFacilityEvaluation note* Diagnosis Encounter for IUD insertion Insertion of intrauterine contraceptive device documented in this encounter [facility] Healthcare Evaluation note Note Date & TypeNoteFacilityEvaluation note* Diagnosis Nasal valve collapse- Primary documented in this encounter [facility] Healthcare Evaluation note Note Date & TypeNoteFacilityEvaluation note* Diagnosis Intrauterine contraceptive device threads lost, initial encounter- Primary documented in this encounter [facility] Healthcare Reason for visit Narrative Note Date & TypeNoteFacilityReason for visit Narrative* OBGYN (Routine) - Closed SpecialtyDiagnoses / ProceduresReferred By ContactReferred To Contact Obstetrics and Gynecology Diagnoses Encounter for insertion of intrauterine contraceptive device Procedures IN LEVONORGESTREL IU 52MG 8 YR IN INSERTION INTRAUTERINE DEVICE IUD Jennifer Lombardo MD [address] [facility] [address] [place] [address] Phone: tel: fax: Jennifer Lombardo MD [address] [facility] [address] [place] [address] Phone: tel: fax: Referral IDStatusReasonStart DateExpiration DateVisits RequestedVisits [id number] Continuity of Care [facility] Summary Purpose Family History No Family History Records FoundNo Family History Records FoundNo Family History Records Found Advance Directives No Advanced Directives Records FoundNo Advanced Directives Records FoundNo Advanced Directives Records Found Additional Source Comments INFORMATION SOURCE (unrecogn ized section and content) DATE CREATED AUTHOR 08/21/2021 [facility] DATE CREATED AUTHOR AUTHOR'S ORGANIZ ATION 03/04/2025 [facility] EPIC DATE CREATED AUTHOR AUTHOR'S ORGANIZ ATION 06/28/2025 [facility] EPIC Care Teams (unrecognized sec tion and content) Team MemberRelationshipSpecialtyStart DateEnd Date Sugey Greene MD PCP - GeneralFamily Medicine03/30/24Team MemberRelationshipSpecialtyStart DateEnd Date Sugey Greene MD PCP - GeneralFamily Medicine03/30/24Team MemberRelationshipSpecialtyStart DateEnd Date Sugey Greene MD [address] [place] [address] PCP - GeneralFamily Medicine02/25/25Team MemberRelationshipSpecialtyStart DateEnd Date Sugey Greene MD [address] [place] [phone] PCP - GeneralFamily Medicine02/25/25Team MemberRelationshipSpecialtyStart DateEnd Date Sugey Greene MD [address] [place] [facility] [phone] PCP - [facility]02/25/25Te MemberRelationshipSpecialtyStart DateEnd Sugey Greene MD [address] [place] [facility] [address] PCP - [facility]02/25/25Te MemberRelationshipSpecialtyStart End Sugey Greene MD [address] [place] [facility] [address] PCP - [facility]02/25/25 Reason for Visit (unrecogniz ed section and content) ReasonCommentsSinusitisRecurrent sinusitis FOR RECORDS PERTAINING TO PATIENTS WHO ARE [...] BE BASED ON THE PRIMARY CLINICAL RECORDS. [facility]. provides no warranty or guarantee of the accuracy or completeness of information in this document.
== END 2025-08-05 12:06 | disposition home or self-care (01) ==
LOC: RAD 12:08
PROVIDERS: PCP Family Medicine; Visit Provider Family Medicine
DX: M25.511 Pain in right shoulder (principal)
CPT/HCPCS: 73030